=== PATIENT | female | born 1995 | race Caucasian/White ===

== ENCOUNTER 2019-12-13 20:45 | Inpatient (IN) | payer MEDICAID, OTHER ==
[2019-12-13] MEDS ORDERED: SODIUM CHLORIDE 0.9% 1,000 ML IV STA (21:11)
--- NOTE | 2019-12-13 21:15 | ED ---
General Adult HPI <Mehul Hassan Lisa - Last Filed: 12/14/19 01:18> <Slim Meek - Last Filed: 12/14/19 01:23> - General Stated complaint: mental health Time Seen by Provider: 12/13/19 20:49 - History of Present Illness Initial comments: Patient is a 24-year-old female presenting to emergency Department with a chief complaint of overdose. Patient was petitioned by Police Department. Patient reports she took 20 tablets of 30 mg gabapentin. Patient reports the medication was used for a previous extremity injury. Patient reports ingesting the medication about 35 minutes prior to arrival. Patient reports feeling slightly drowsy and shaky but otherwise well. Denies any nausea or vomiting diarrhea. Denies any lightheadedness dizziness blurry vision or headaches at this time. Denies any chest pain or shortness of breath. Denies one-sided weakness paresthesias. Patient states she feels slightly drowsy. (Slim Meek) - Related Data Allergies Allergy/AdvReac Type Severity Reaction Status Date / Time No Known Allergies Allergy Verified 12/13/19 23:42 Review of Systems ROS Other: All systems not noted in ROS Statement are negative. <Mehul Hassan Lisa - Last Filed: 12/14/19 01:18> ROS Other: All systems not noted in ROS Statement are negative. <Slim Meek - Last Filed: 12/14/19 01:23> ROS Statement: Those systems with pertinent positive or pertinent negative responses have been documented in the HPI. General Exam Limitations: no limitations General appearance: alert, anxious Head exam: Present: atraumatic, normocephalic, normal inspection Eye exam: Present: normal appearance, PERRL, EOMI Pupils: Present: normal accommodation ENT exam: Present: normal exam Neck exam: Present: normal inspection, full ROM Respiratory exam: Present: normal lung sounds bilaterally Cardiovascular Exam: Present: regular rate, normal rhythm, normal heart sounds Extremities exam: Present: normal inspection, full ROM Back exam: Present: normal inspection, full ROM Neurological exam: Present: alert, oriented X3, CN II-XII intact, normal gait Psychiatric exam: Present: normal affect, anxious. Absent: depressed, agitated, flat affect, manic Skin exam: Present: warm, dry, intact, normal color <Slim Meek - Last Filed: 12/14/19 01:23> Course <Mehul Hassan - Last Filed: 12/14/19 01:18> Vital Signs 12/13/19 12/13/19 12/13/19 21:17 21:26 21:30 Temperature 98.6 F Pulse Rate 86 92 84 Respiratory 16 Rate Blood Pressure 134/90 134/90 O2 Sat by Pulse 98 99 Oximetry 12/13/19 12/13/19 12/13/19 21:45 22:00 22:15 Temperature Pulse Rate 82 82 100 Respiratory Rate Blood Pressure 134/90 134/90 131/89 O2 Sat by Pulse 99 99 100 Oximetry 12/13/19 12/13/19 12/13/19 22:30 22:45 23:00 Temperature Pulse Rate 107 H 88 80 Respiratory Rate Blood Pressure 132/92 132/89 129/88 O2 Sat by Pulse 99 100 96 Oximetry 12/13/19 23:15 Temperature Pulse Rate 90 Respiratory Rate Blood Pressure 126/81 O2 Sat by Pulse 96 Oximetry - Reevaluation(s) Reevaluation #1: 12/14/19 01:18 I personally evaluated this patient, completed a clinical certification and agree with recommendation to admit this patient for further psychiatric evaluation and treatment. (Mehul Hassan) EKG Findings - EKG Comments: EKG Findings:: Sinus rhythm no ST or T-wave changes. Ventricular rate 85, NH 154, QRS 74, QTC 402. <Slim Meek - Last Filed: 12/14/19 01:23> Medical Decision Making - Lab Data Result diagrams: 12/13/19 21:40 12/13/19 21:40 <Mehul Hassan - Last Filed: 12/14/19 01:18> - Lab Data Result diagrams: 12/13/19 21:40 12/13/19 21:40 <Slim Meek - Last Filed: 12/14/19 01:23> - Medical Decision Making Patient is 24-year-old female with history of suicidal attempt presenting to emergency Department with a chief complaint of overdose. Patient brought to the ED via police department. Patient attempted suicide by ingesting 20 tablets of 300 mg of gabapentin. On exam patient was slightly diaphoretic with bilateral upper and lower extremity tremors. Patient is AO 3. Patient states she feels slightly shaky but otherwise well. I spoke with poison control who advised 50 mg of activated charcoal with sorbitol. Patient was given that. Patient is a sinus rhythm with no QT prolonged inpatient. They advised patient to be observed for 6-8 hours. CBC shows slight elevation a WBC. CMP unremarkable. Acetaminophen and salicylates negative. Not UA unremarkable. On reevaluation patient reports the tremors have resolved and now she feels under. Mother is also present in the room. They will likely patient to be evaluated by psychiatry. She will be admitted for psychiatric evaluation. (Slim Meek) - Lab Data Lab Results 12/13/19 12/13/19 12/13/19 Range/Units 21:00 21:00 21:40 WBC 11.9 H (3.8-10.6) k/uL RBC 4.30 (3.80-5.40) m/uL Hgb 12.5 (11.4-16.0) gm/dL Hct 37.3 (34.0-46.0) % MCV 86.8 (80.0-100.0) fL MCH 29.1 (25.0-35.0) pg MCHC 33.6 (31.0-37.0) g/dL RDW 12.3 (11.5-15.5) % Plt Count 245 (150-450) k/uL Neutrophils % 72 % Lymphocytes % 20 % Monocytes % 6 % Eosinophils % 1 % Basophils % 0 % Neutrophils # 8.5 H (1.3-7.7) k/uL Lymphocytes # 2.4 (1.0-4.8) k/uL Monocytes # 0.7 (0-1.0) k/uL Eosinophils # 0.1 (0-0.7) k/uL Basophils # 0.0 (0-0.2) k/uL Sodium (137-145) mmol/L Potassium (3.5-5.1) mmol/L Chloride (98-107) mmol/L Carbon Dioxide (22-30) mmol/L Anion Gap mmol/L BUN (7-17) mg/dL Creatinine (0.52-1.04) mg/dL Est GFR (CKD-EPI)AfAm (>60 ml/min/1.73 sqM) Est GFR (CKD-EPI)NonAf (>60 ml/min/1.73 sqM) Glucose (74-99) mg/dL Plasma Lactic Acid Mike (0.7-2.0) mmol/L Calcium (8.4-10.2) mg/dL Total Bilirubin (0.2-1.3) mg/dL AST (14-36) U/L ALT (4-34) U/L Alkaline Phosphatase (38-126) U/L Total Protein (6.3-8.2) g/dL Albumin (3.5-5.0) g/dL Urine HCG, Qual Not Detected (Not Detectd) Salicylates mg/dL Urine Opiates Screen Not Detected (NotDetected) Ur Oxycodone Screen Not Detected (NotDetected) Urine Methadone Screen Not Detected (NotDetected) Ur Propoxyphene Screen Not Detected (NotDetected) Acetaminophen ug/mL Ur Barbiturates Screen Not Detected (NotDetected) U Tricyclic Antidepress Not Detected (NotDetected) Ur Phencyclidine Scrn Not Detected (NotDetected) Ur Amphetamines Screen Not Detected (NotDetected) U Methamphetamines Scrn Not Detected (NotDetected) U Benzodiazepines Scrn Not Detected (NotDetected) Urine Cocaine Screen Not Detected (NotDetected) U Marijuana (THC) Screen Not Detected (NotDetected) Serum Alcohol mg/dL 12/13/19 12/13/19 Range/Units 21:40 21:54 WBC (3.8-10.6) k/uL RBC (3.80-5.40) m/uL Hgb (11.4-16.0) gm/dL Hct (34.0-46.0) % MCV (80.0-100.0) fL MCH (25.0-35.0) pg MCHC (31.0-37.0) g/dL RDW (11.5-15.5) % Plt Count (150-450) k/uL Neutrophils % % Lymphocytes % % Monocytes % % Eosinophils % % Basophils % % Neutrophils # (1.3-7.7) k/uL Lymphocytes # (1.0-4.8) k/uL Monocytes # (0-1.0) k/uL Eosinophils # (0-0.7) k/uL Basophils # (0-0.2) k/uL Sodium 136 L (137-145) mmol/L Potassium 5.1 (3.5-5.1) mmol/L Chloride 105 (98-107) mmol/L Carbon Dioxide 25 (22-30) mmol/L Anion Gap 6 mmol/L BUN 12 (7-17) mg/dL Creatinine 0.72 (0.52-1.04) mg/dL Est GFR (CKD-EPI)AfAm >90 (>60 ml/min/1.73 sqM) Est GFR (CKD-EPI)NonAf >90 (>60 ml/min/1.73 sqM) Glucose 92 (74-99) mg/dL Plasma Lactic Acid Mike 0.8 (0.7-2.0) mmol/L Calcium 9.0 (8.4-10.2) mg/dL Total Bilirubin 1.1 (0.2-1.3) mg/dL AST 47 H (14-36) U/L ALT 14 (4-34) U/L Alkaline Phosphatase 62 (38-126) U/L Total Protein 7.7 (6.3-8.2) g/dL Albumin 4.5 (3.5-5.0) g/dL Urine HCG, Qual (Not Detectd) Salicylates <1.0 mg/dL Urine Opiates Screen (NotDetected) Ur Oxycodone Screen (NotDetected) Urine Methadone Screen (NotDetected) Ur Propoxyphene Screen (NotDetected) Acetaminophen <10.0 ug/mL Ur Barbiturates Screen (NotDetected) U Tricyclic Antidepress (NotDetected) Ur Phencyclidine Scrn (NotDetected) Ur Amphetamines Screen (NotDetected) U Methamphetamines Scrn (NotDetected) U Benzodiazepines Scrn (NotDetected) Urine Cocaine Screen (NotDetected) U Marijuana (THC) Screen (NotDetected) Serum Alcohol <10 mg/dL Disposition <Mehul Hassan - Last Filed: 12/14/19 01:18> Is patient prescribed a controlled substance at d/c from ED?: No Time of Disposition: 23:09 <Slim Meek - Last Filed: 12/14/19 01:23> Clinical Impression: Attempted suicide Disposition: ADMITTED IP TO THIS [facility] Condition: Good Additional Instructions: Patient will be admitted Referrals: None,Stated [Primary Care Provider] - 1-2 days
[2019-12-13] MEDS ORDERED: ACTIVATED CHARCOAL-SORBITOL 50 GM/240 ML BOTTLE PO STA (21:50)
[2019-12-13 21:53] LABS: Amphetamine Screen,Urine Not Detected (NotDetected); Barbiturate Screen,Urine Not Detected (NotDetected); Benzodiazepines Screen,Urine Not Detected (NotDetected); Cocaine Screen,Urine Not Detected (NotDetected); Methadone Screen, Urine Not Detected (NotDetected); Opiate Screen,Urine Not Detected (NotDetected); Oxycodone Screen, Urine Not Detected (NotDetected); Phencyclidine Screen,Urine Not Detected (NotDetected); Tricyclic Antidepressant,Urine Not Detected (NotDetected); Urn Cannabinoid Scrn Not Detected (NotDetected)
[2019-12-13 21:59] LABS: Basophils % (A) 0 %; Eosinophils # (A) 0.1 k/uL (0-0.7); Eosinophils % (A) 1 %; HCT 37.3 % (34.0-46.0); HGB 12.5 gm/dL (11.4-16.0); Lymphocytes # (A) 2.4 k/uL (1.0-4.8); Lymphocytes % (A) 20 %; MCH 29.1 pg (25.0-35.0); MCHC 33.6 g/dL (31.0-37.0); MCV 86.8 fL (80.0-100.0); Mean Platelet Volume 8.7; Monocytes # (A) 0.7 k/uL (0-1.0); Monocytes % (A) 6 %; Neutrophils # (A) 8.5 k/uL (1.3-7.7); Neutrophils % (A) 72 %; Platelet Count 245 k/uL (150-450); RDW 12.3 % (11.5-15.5); WBC 11.9 k/uL (3.8-10.6)
[2019-12-13 22:02] LABS: ALT 14 U/L (4-34); AST 47 U/L (14-36); Acetaminophen <10.0 ug/mL; African American GFR (CKD) >90 (>60 ml/min/1.73 sqM); Albumin 4.5 g/dL (3.5-5.0); Alcohol <10 mg/dL; Alkaline Phosphatase 62 U/L (38-126); Anion Gap 6 mmol/L; Blood Urea Nitrogen 12 mg/dL (7-17); Carbon Dioxide 25 mmol/L (22-30); Chloride 105 mmol/L (98-107); Glucose 92 mg/dL (74-99); Non-African American GFR(CKD) >90 (>60 ml/min/1.73 sqM); Potassium 5.1 mmol/L (3.5-5.1); Salicylate <1.0 mg/dL; Sodium 136 mmol/L (137-145); Total Bilirubin 1.1 mg/dL (0.2-1.3); Total Protein 7.7 g/dL (6.3-8.2)
[2019-12-14] MEDS ORDERED: MAGNESIUM HYDROXIDE 2,400 MG/10 ML CUP PO PRN (01:59)
[2019-12-14] MEDS ORDERED: LORazepam 1 MG TAB PO PRN (01:59)
[2019-12-14] MEDS ORDERED: MAG HYDROX/AL HYDROX/SIMETH 30 ML CUP PO PRN (01:59)
[2019-12-14] MEDS ORDERED: ZIPRASIDONE 20 MG VIAL IM PRN (01:59)
[2019-12-14 02:39] VITALS: BP 139/88; PULSE 95; RESP 14
[2019-12-14 03:42] LABS: Appearance,Urine Clear (Clear); Bacteria,Urine Occasional /hpf; Bilirubin,Urine Negative (Negative); Blood,Urine Large (Negative); Color,Urine Light Yellow; Glucose,Urine (UA) Negative (Negative); Ketones,Urine Negative (Negative); Leukocyte Esterase,Urine Negative (Negative); Nitrite,Urine Negative (Negative); PH, Urine 6.5 (5.0-8.0); Protein,Urine Negative (Negative); RBC,Urine 1 /hpf (0-5); Specific Gravity,Urine 1.006 (1.001-1.035); Squamous Epithelial Cell,Urine <1 /hpf (0-4); Urobilinogen,Urine <2.0 mg/dL (<2.0); WBC,Urine 1 /hpf (0-5)
[2019-12-14 07:22] LABS: Bilirubin,Unconjugated 0.4 mg/dL (0.0-1.1); Total Bilirubin 0.2 mg/dL (0.2-1.3); Total Protein 6.9 g/dL (6.3-8.2)
[2019-12-14] MEDS: ACETAMINOPHEN TAB 325 MG TAB PO PRN ×3 (09:59→21:33)
--- NOTE | 2019-12-14 12:21 | P.HP ---
Psychiatric H&P - . H&P Date: 12/14/19 History & Physical: Allergies Allergy/AdvReac Type Severity Reaction Status Date / Time cat dander Allergy Intermediate Itching Verified 12/14/19 02:10 dog dander Allergy Intermediate Itching Verified 12/14/19 02:10 Vital Signs Temp 97.8 F 12/14/19 02:29 Pulse 95 12/14/19 02:29 Resp 14 12/14/19 02:29 BP 139/88 12/14/19 02:29 Pulse Ox 98 12/14/19 02:29 Intake & Output 12/13/19 12/14/19 12/14/19 18:59 06:59 18:59 Weight 59.194 kg Laboratory Last Values WBC 11.9 k/uL (3.8-10.6) H 12/13/19 21:40 RBC 4.30 m/uL (3.80-5.40) 12/13/19 21:40 Hgb 12.5 gm/dL (11.4-16.0) 12/13/19 21:40 Hct 37.3 % (34.0-46.0) 12/13/19 21:40 MCV 86.8 fL (80.0-100.0) 12/13/19 21:40 MCH 29.1 pg (25.0-35.0) 12/13/19 21:40 MCHC 33.6 g/dL (31.0-37.0) 12/13/19 21:40 RDW 12.3 % (11.5-15.5) 12/13/19 21:40 Plt Count 245 k/uL (150-450) 12/13/19 21:40 Neutrophils % 72 % 12/13/19 21:40 Lymphocytes % 20 % 12/13/19 21:40 Monocytes % 6 % 12/13/19 21:40 Eosinophils % 1 % 12/13/19 21:40 Basophils % 0 % 12/13/19 21:40 Neutrophils # 8.5 k/uL (1.3-7.7) H 12/13/19 21:40 Lymphocytes # 2.4 k/uL (1.0-4.8) 12/13/19 21:40 Monocytes # 0.7 k/uL (0-1.0) 12/13/19 21:40 Eosinophils # 0.1 k/uL (0-0.7) 12/13/19 21:40 Basophils # 0.0 k/uL (0-0.2) 12/13/19 21:40 Sodium 136 mmol/L (137-145) L 12/13/19 21:40 Potassium 5.1 mmol/L (3.5-5.1) 12/13/19 21:40 Chloride 105 mmol/L (98-107) 12/13/19 21:40 Carbon Dioxide 25 mmol/L (22-30) 12/13/19 21:40 Anion Gap 6 mmol/L 12/13/19 21:40 BUN 12 mg/dL (7-17) 12/13/19 21:40 Creatinine 0.72 mg/dL (0.52-1.04) 12/13/19 21:40 Est GFR (CKD-EPI)AfAm >90 (>60 ml/min/1.73 sqM) 12/13/19 21:40 Est GFR (CKD-EPI)NonAf >90 (>60 ml/min/1.73 sqM) 12/13/19 21:40 Glucose 92 mg/dL (74-99) 12/13/19 21:40 Plasma Lactic Acid Mike 0.8 mmol/L (0.7-2.0) 12/13/19 21:54 Calcium 9.0 mg/dL (8.4-10.2) 12/13/19 21:40 Total Bilirubin 0.2 mg/dL (0.2-1.3) 12/14/19 06:54 Conjugated Bilirubin 0.0 mg/dL (0.0-0.3) 12/14/19 06:54 Unconjugated Bilirubin 0.4 mg/dL (0.0-1.1) 12/14/19 06:54 Delta Bilirubin 0.0 mg/dL (0.0-0.2) 12/14/19 06:54 AST 23 U/L (14-36) 12/14/19 06:54 ALT 14 U/L (4-34) 12/14/19 06:54 Alkaline Phosphatase 56 U/L (38-126) 12/14/19 06:54 Total Protein 6.9 g/dL (6.3-8.2) 12/14/19 06:54 Albumin 4.0 g/dL (3.5-5.0) 12/14/19 06:54 Triglycerides 136 mg/dL (<150) 12/14/19 06:54 Cholesterol 214 mg/dL (<200) H 12/14/19 06:54 LDL Cholesterol, Calc 125 mg/dL (0-99) H 12/14/19 06:54 HDL Cholesterol 62 mg/dL (40-60) H 12/14/19 06:54 TSH 2.700 mIU/L (0.465-4.680) 12/14/19 06:54 Urine Color Light Yellow 12/13/19 21:00 Urine Appearance Clear (Clear) 12/13/19 21:00 Urine pH 6.5 (5.0-8.0) 12/13/19 21:00 Ur Specific [place] 1.006 (1.001-1.035) 12/13/19 21:00 Urine Protein Negative (Negative) 12/13/19 21:00 Urine Glucose (UA) Negative (Negative) 12/13/19 21:00 Urine Ketones Negative (Negative) 12/13/19 21:00 Urine Blood Large (Negative) H 12/13/19 21:00 Urine Nitrite Negative (Negative) 12/13/19 21:00 Urine Bilirubin Negative (Negative) 12/13/19 21:00 Urine Urobilinogen <2.0 mg/dL (<2.0) 12/13/19 21:00 Ur Leukocyte Esterase Negative (Negative) 12/13/19 21:00 Urine RBC 1 /hpf (0-5) 12/13/19 21:00 Urine WBC 1 /hpf (0-5) 12/13/19 21:00 Ur Squamous Epith Cells <1 /hpf (0-4) 12/13/19 21:00 Urine Bacteria Occasional /hpf (None) H 12/13/19 21:00 Urine HCG, Qual Not Detected (Not Detectd) 12/13/19 21:00 Salicylates <1.0 mg/dL 12/13/19 21:40 Urine Opiates Screen Not Detected (NotDetected) 12/13/19 21:00 Ur Oxycodone Screen Not Detected (NotDetected) 12/13/19 21:00 Urine Methadone Screen Not Detected (NotDetected) 12/13/19 21:00 Ur Propoxyphene Screen Not Detected (NotDetected) 12/13/19 21:00 Acetaminophen <10.0 ug/mL 12/13/19 21:40 Ur Barbiturates Screen Not Detected (NotDetected) 12/13/19 21:00 U Tricyclic Antidepress Not Detected (NotDetected) 12/13/19 21:00 Ur Phencyclidine Scrn Not Detected (NotDetected) 12/13/19 21:00 Ur Amphetamines Screen Not Detected (NotDetected) 12/13/19 21:00 U Methamphetamines Scrn Not Detected (NotDetected) 12/13/19 21:00 U Benzodiazepines Scrn Not Detected (NotDetected) 12/13/19 21:00 Urine Cocaine Screen Not Detected (NotDetected) 12/13/19 21:00 U Marijuana (THC) Screen Not Detected (NotDetected) 12/13/19 21:00 Serum Alcohol <10 mg/dL 12/13/19 21:40 12/14/19 12:11 IDENTIFYING DATA: Patient is a 24-year-old female who currently lives with her mother in a house and is on disability as single has no kids. HPI: Patient presented to the hospital yesterday after an overdose at home with suicide intent. Patient was given activated charcoal with sorbitol in the ER after allegedly ingesting 20 pills of gabapentin at home. Patient also had written a suicide note saying goodbye to her family members and friends. Patient was on petition by [place] who stated that patient did overdose in an effort to end her life. Patient was seen this morning and was agreeable to seek to technical writer in the office. She claims that she has been struggling with depression for over 3 years now and states that it was a "build-up of things". She went on to explain several stressors and changes in her life including moving back to [place] to be with her mother 2 months ago and states that she has been apart from her boyfriend in [place] who she misses. Patient also spoke about the pandemic and being in isolation. She claims that she is making good progress in [place] working on childhood traumas with her previous counselor however feels that she is "regressed since I've been here". She spoke about poor self-esteem and feeling worthless and also arguments with her mother at home. Patient claims that she was feeling like "I feel I don't matter anymore and I'm supporting everybody". She claims that 1 day ago she got into a argument with her cousin and her cousin's at their house and was kicked out of there home and was forced to walk 3 hours back home. She states that she got home and she was soaking wet from the rain and claims that she had a bath spoke to her boyfriend over the phone and then went to her room and overdosed on the pills and then began writing the suicide note. She states that her mother came to check on her and that's when she told her about the suicide attempt. She claims that she has been on Zoloft 75 mg daily and has been compliant with her medications. Patient denies any suicidal or homicidal ideations intent or plan. At this time patient denies any auditory or visual hallucinations. Patient denies any flight of ideas racing thoughts and increased in goal directed behavior. Patient denies using any cigarettes at this time or any other recreational drugs. PAST PSYCHIATRIC HISTORY: Patient states that she has a history of anxiety and depression and claims that she has never been admitted to a psychiatric hospital. She states she is on Zoloft 75 mg daily for mood. She states that norma cherry has been working with a therapist in [place] however has no psychiatrist in the area. She admitted to one previous suicide attempt one year ago when she cut her wrist. PMH: Ankle injuries from a fall one year ago. ALLERGIES: as per EMR CHEMICAL DEPENDENCY HISTORY: as per HPI FAMILY PSYCHIATRIC/SUBSTANCE USE HISTORY: States that her father has OCD, mother has bipolar disorder and sister suffers from depression. SOCIAL HISTORY: Patient was born and raised in [facility] and states that she moved to [place] and has recently moved back to [place]. She claims that she completed high school and did not attend college. 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 She is single has no kids and currently lives with her mother in a house. MENTAL STATUS EXAM: General Appearance: Patient appears to be stated age is alert, directable, and attempts to cooperate. Patient appears to have fair hygiene and grooming. Behavior: Patient is seated without any agitated behavior. Speech: Patient's speech is fluent and nonpressured. Mood/Affect: Patient reports their mood is depressed and anxious, affect is congruent and constricted. Suicidality/Homicidality: Patient denies having any homicidal ideation intent or plan. Denies any suicidal ideations intent or plan Perceptions: Patient denies any visual hallucinations and denies any auditory hallucinations Though content/process: There is no evidence of any delusional thought content and thought process is linear and goal-directed. Memory and concentration: AOX3, grossly intact for the purposes of this session. Can spell "WORLD" backwards Judgment and insight: Fair STRENGTHS/WEAKNESSES: strength is that patient is resilient. Weakness is that patient has poor judgment INTELLECT: average IMPRESSIONS: Major depressive disorder, recurrent, severe. Anxiety disorder unspecified PLAN: -Patient is admitted under voluntary status to MHU for stabilization of ps ychiatric symptoms and safety. Patient signed adult voluntary form and medication consent and is placed in patient's chart. -Medications : Will start patient on Zoloft 75 mg daily for mood/anxiety with plan to titrate up as needed. Will start patient on trazodone 50 mg daily at bedtime for sleep/mood. -Ativan and Geodon PRN for agitation/aggression -Patient was informed of the risks, benefits and side effects of the medication and patient verbally consented to taking the medications. Patient signed med consent form and was placed in chart. -Internal Medicine consult to perform medical evaluation and physical. -NRT -not need this patient does not smoke. -SW on board for discharge planning. Encourage patient to participate in groups to work on coping skills. Will attempt to work with patient's family to address concerns and work towards a safe discharge plan. 12/14/19 12:18
[2019-12-14] MEDS: SERTRALINE 50 MG TAB PO SCH (13:13)
[2019-12-14 16:21] LABS: Hemoglobin A1C 5.1 % (4.0-6.0)
[2019-12-14] MEDS: traZODone HCL 50 MG TAB PO SCH (21:33)
--- NOTE | 2019-12-15 01:34 | P.HPIM ---
History of Present Illness H&P Date: 12/15/19 The patient is a 24-year-old female with a PMH of depression who presented to the ED after an overdose attempt with gabapentin. The patient reported taking 20 tablets of 30 mg gabapentin for suicide attempt. Poison control was contacted and the patient was given activated charcoal and sorbitol and was monitored after which she was admitted to the mental health unit where she was seen and evaluated earlier today. At time of evaluation, the patient noted feeling well and less drowsy. She reported that she had attempted overdose due to some of the difficulties with her life. She reported chronic bilateral ankle pain due to an injury last year. She otherwise was in good spirits and denied any active complaints. She denied chest pain, shortness of fever, chills, nausea, or vomiting. Review of Systems Pertinent positives and negatives as discussed in HPI, a complete review of systems was performed and all other systems are negative. Past Medical History Additional Past Medical History / Comment(s): Seasonal allergies and pet dander, eczema History of Any Multi-Drug Resistant Organisms: None Reported Past Surgical History: Orthopedic Surgery Additional Past Surgical History / Comment(s): Bilat heel fx and surg 12/2018 Past Anesthesia/Blood Transfusion Reactions: No Reported Reaction Additional Psychological History / Comment(s): [facility] Smoking Status: Never smoker Past Alcohol Use History: None Reported Past Drug Use History: None Reported Medications and Allergies Home Medications Medication Instructions Recorded Confirmed Type Cetirizine HCl [Zyrtec] 10 mg PO DAILY 12/14/19 12/14/19 History Norgestimate-Ethinyl Estradiol 1 tab PO DAILY 12/14/19 12/14/19 History [[id number] Tablet] Sertraline [Zoloft] 25 mg PO AC-TID 12/14/19 12/14/19 History Allergies Allergy/AdvReac Type Severity Reaction Status Date / Time cat dander Allergy Intermediate Itching Verified 12/14/19 02:10 dog dander Allergy Intermediate Itching Verified 12/14/19 02:10 Physical Exam Vitals: Vital Signs Temp Pulse Resp BP Pulse Ox 12/14/19 22:15 98.7 F 12/14/19 17:46 98.2 F 12/14/19 13:51 99.4 F 12/14/19 02:29 97.8 F 95 14 139/88 98 General: non toxic, no distress, appears at stated age, normal weight Derm: no unusual rashes/lesions no unusual ecchymoses, warm, dry Head: atraumatic, normocephalic, symmetric Eyes: EOMI, no lid lag, anicteric sclera, pupils equal round reactive to light ENT: Nose and ears atraumatic, no thrush, no pharyngeal erythema Neck: No thyromegaly, no cervical lymphadenopathy, trachea midline, supple Mouth: no lip lesion, mucus membranes moist Cardiovascular: S1S2 reg, no murmur, positive posterior tibial pulse bilateral, no edema, capillary refill less than 2 seconds Lungs: CTA bilateral, no rhonchi, no rales , no accessory muscle use Abdominal: soft, nontender to palpation, no guarding, no appreciable organ omegaly, normal bowel sounds Ext: no gross muscle atrophy, muscle strength 5 out of 5 in all 4 extremities grossly, no contractures, Neuro: CN II-XI grossly intact, light touch intact all 4 extremities, finger to nose within normal limits, Psych: Alert, oriented, appropriate affect Results CBC & Chem 7: 12/13/19 21:40 12/13/19 21:40 Labs: Abnormal Lab Results - Last 24 Hours (Table) 12/13/19 12/14/19 Range/Units 21:00 06:54 Cholesterol 214 H (<200) mg/dL LDL Cholesterol, Calc 125 H (0-99) mg/dL HDL Cholesterol 62 H (40-60) mg/dL Urine Blood Large H (Negative) Urine Bacteria Occasional H (None) /hpf Thrombosis Risk Factor Assmnt - Choose All That Apply Any of the Below Risk Factors Present?: No Other Risk Factors: No Other congenital or acquired thrombophilia - If yes, enter type in comment: No Thrombosis Risk Factor Assessment Level: Very Low Risk Assessment and Plan Plan: Overdose with gabapentin -Status post charcoal and sorbitol -Patient currently doing well Suicide attempt -As per psychiatry Leukocytosis -Likely due to acute stress with no active signs of infection noted Thank you for allowing us to participate in the care of this patient. We will follow peripherally. Do not hesitate to contact us with questions. Someone can be reached from the [facility] hospitalist group at all hours of the day at [phone].
[2019-12-15] MEDS: SERTRALINE 50 MG TAB PO SCH (08:49)
--- NOTE | 2019-12-15 10:00 | P.PN ---
Progress Note - Text Progress Note Date: 12/15/19 Interval History: Patient was seen laying down in her bed this morning and was directable and ag reeable to speak with health technical writer in the office. Patient claims that she is feeling "okay today" and appeared to be sleepy. She states that she had a difficult night last night that she was awoken several times on the unit. She claims that she is trying and going to some groups and attempting to "make the most of it". She also states that she spoke with her boyfriend over the phone in [place] yesterday and also spoke with her mom and states that "we are trying to work things out". She states that she continues to feels guilt for what she has done and claims that "it was a buildup of many different things". She states that she has fair appetite. At this time patient denies any suicidal or homical ideations, intent or plan. Patient denies any auditory, visual hallucinations and denies any paranoia or delusions. Patient denies any side effects from the medications and has been compliant with meds. Mental Status Exam: General Appearance: Patient appears to be stated age is alert, directable, and attempts to cooperate. Patient appears to have fair hygiene and grooming. Behavior: Patient is seated without any agitated behavior. Speech: Patient's speech is fluent and nonpressured. Mood/Affect: Patient reports their mood is mildly improving, affect is congruent and constricted. Suicidality/Homicidality: Patient denies having any homicidal ideation intent or plan. Denies any suicidal ideations intent or plan Perceptions: Patient denies any visual hallucinations and denies any auditory hallucinations Though content/process: There is no evidence of any delusional thought content and thought process is linear and goal-directed. Memory and concentration: AOX3, grossly intact for the purposes of this session. Judgment and insight: Improving mildly Assessment Major depressive disorder, recurrent, severe. Anxiety disorder unspecified Plan: -Patient continues to meet criteria for inpatient psychiatric admission for symptom stabilization and safety. Patient has signed adult voluntary form and medication consent and was placed in patient's chart. -Medications: Increase Zoloft to 100 mg daily for mood/anxiety with plan to titrate up as needed. Continue with trazodone 50 mg nightly for mood/sleep. -When necessary Geodon and Ativan for agitation/aggression. -NRT -not needed as patient does not smoke. -SW on board for discharge planning. Encouraged the patient to participate in milieu. sheep farm worker to attempt to contact patient's family to address concerns and work towards a safe discharge plan.
[2019-12-15] MEDS: ACETAMINOPHEN TAB 325 MG TAB PO PRN ×3 (12:32→21:26)
[2019-12-15] MEDS: traZODone HCL 50 MG TAB PO SCH (21:26)
[2019-12-15 21:28] VITALS: TEMP 99.3
[2019-12-16] MEDS: ACETAMINOPHEN TAB 325 MG TAB PO PRN (08:55)
[2019-12-16] MEDS ORDERED: SERTRALINE 100 MG TAB PO SCH (09:00)
--- NOTE | 2019-12-16 09:39 | P.DS ---
Providers Date of admission: 12/14/19 01:51 Expected date of discharge: 12/16/19 Attending physician: Jamil Rodriguez MD Consults: 12/14/19 01:59 Consult Physician Routine Consulting Provider: Omayra Vega Consult Reason/Comments: For H & P for Medical Follow up Do you want consulting provider notified?: Yes Primary care physician: Stated None - Discharge Diagnosis(es) (1) Major depressive disorder, recurrent episode Current Visit: Yes Status: Acute Priority: High (2) Anxiety disorder Current Visit: Yes Status: Acute Priority: Medium Hospital Course: Admission HPI: Patient is a 24-year-old female who currently lives with her mother in a house and is on disability as single has no kids. Patient presented to the hospital yesterday after an overdose at home with suicide intent. Patient was given activated charcoal with sorbitol in the ER after allegedly ingesting 20 pills of gabapentin at home. Patient also had written a suicide note saying julieth neil to her family members and friends. Patient was on petition by Sheriff Crocker who stated that patient did overdose in an effort to end her life. Patient was seen this morning and was agreeable to seek to commercial insurance underwriter in the office. She claims that she has been struggling with depression for over 3 years now and states that it was a "build-up of things". She went on to explain several stressors and changes in her life including moving back to [place] to be with her mother 2 months ago and states that she has been apart from her boyfriend in [place] who she misses. Patient also spoke about the pandemic and being in isolation. She claims that she is making good progress in [place] working on childhood traumas with her previous counselor however feels that she is "regressed since I've been here". She spoke about poor self-esteem and feeling worthless and also arguments with her mother at home. Patient claims that she was feeling like "I feel I don't matter anymore and I'm supporting everybody". She claims that 1 day ago she got into a argument with her cousin and her cousin's at their house and was kicked out of there home and was forced to walk 3 hours back home. She states that she got home and she was soaking wet from the rain and claims that she had a bath spoke to her boyfriend over the phone and then went to her room and overdosed on the pills and then began writing the suicide note. She states that her mother came to check on her and that's when she told her about the suicide attempt. She claims that she has been on Zoloft 75 mg daily and has been compliant with her medications. Patient denies any suicidal or homicidal ideations intent or plan. At this time patient denies any auditory or visual hallucinations. Patient denies any flight of ideas racing thoughts and increased in goal directed behavior. Patient denies using any cigarettes at this time or any other recreational drugs. Hospital course: Upon admission to the unit patient was initially depressed and anxious. Patient was however directable and agreeable to commence treatment. Patient got along well with other patients on the unit and followed unit protocol. Patient was compliant with the medications and denied any side effects throughout hospital course. Patient was started on Zoloft and titrated up to a dose of 100 mg daily for mood/anxiety, patient was also started on trazodone 50 mg nightly for mood/sleep. Patient spoke of her stressors and engaged in therapy both group and individual. Patient spoke about working on distress tolerance and coping skills. Patient was also seen by medical team for history and physical exam. Throughout the course of the hospitalization patient gradually improved with regards to mood, anxiety, sleep and became future oriented with improved insight and judgment. On the day of discharge patient denied any suicidal or homicidal ideations intent or plan denied any auditory or visual hallucinations. Patient endorsed wanting to live for her future and her family. The patient denied any access to guns or weapons. Patient denied any paranoia and did not endorse any delusions. Patient does not have a significant history of substance abuse however was counseled on abstaining from all substances including alcohol and marijuana. Patient was also counseled on the medications and need for regular compliance and was encouraged to follow-up with their outpatient appointment for mental health and also for primary care. [Prior to discharge commercial insurance underwriter patient and mother held the phone call meeting and discussed patient's care, answer questions when addressed concerns for safety in the household and mother was agreeable to watch patient closely and manage her medications at home and is agreeable and comfortable with discharge today. Mental status exam: General Appearance: Patient is in a wheelchair, appears to be stated age is alert, pleasant, and cooperative. Patient is in no acute distress and has fair hygiene and grooming Behavior: Patient is calmly seated without any agitated behavior. Speech: Patient's speech is fluent and nonpressured. Mood/Affect: Patient reports their mood is "better", affect is congruent and euthymic. Suicidality/Homicidality: Patient denies having any suicidal or homicidal ideation intent or plan. Perceptions: Patient denies any auditory or visual hallucinations. Though content/process: There is no evidence of any delusional thought content and thought process is linear and goal-directed. more future oriented Memory and concentration: AOX3, grossly intact for the purposes of this session. Can spell "WORLD" backwards correctly. Judgment and insight: Improved with guarded prognosis Impression: [place]. depressive disorder, recurrent, severe Anxiety disorder unspecified Plan: -Continue with discharge today as patient has improved and stabilized psychiatrically and is not currently an imminent threat to herself and/or others. -Continue medications: Continue with Zoloft 100 mg daily for mood/anxiety, trazodone 50 mg nightly for mood/sleep. -Patient was counseled on the need for medication compliance and appropriate follow-up at mental health and also primary care for medical issues. Patient verbalized understanding and agreed. -Social work to arrange for and conduct family meeting to ensure safety upon discharge and answer any questions/concerns. Social work also to arrange for patients follow up appointments for psychiatric care along with follow up with primary care provider. Patient will also be given resources for outpatient therapists in the area. -Patient counseled on abstaining from recreational drugs and marijuana and alcohol. Was informed/educated on the adverse effects on their physical and mental health. Patient verbally agreed and understood. -Patient was instructed to return to the hospital or seek immediate medical care if their psychiatric or medical symptoms do worsen or reoccur. Allergies Allergy/AdvReac Type Severity Reaction Status Date / Time cat dander Allergy Intermediate Itching Verified 12/14/19 02:10 dog dander Allergy Intermediate Itching Verified 12/14/19 02:10 Laboratory Results WBC 11.9 k/uL (3.8-10.6) H 12/13/19 21:40 RBC 4.30 m/uL (3.80-5.40) 12/13/19 21:40 Hgb 12.5 gm/dL (11.4-16.0) 12/13/19 21:40 Hct 37.3 % (34.0-46.0) 12/13/19 21:40 MCV 86.8 fL (80.0-100.0) 12/13/19 21:40 MCH 29.1 pg (25.0-35.0) 12/13/19 21:40 MCHC 33.6 g/dL (31.0-37.0) 12/13/19 21:40 RDW 12.3 % (11.5-15.5) 12/13/19 21:40 Plt Count 245 k/uL (150-450) 12/13/19 21:40 Neutrophils % 72 % 12/13/19 21:40 Lymphocytes % 20 % 12/13/19 21:40 Monocytes % 6 % 12/13/19 21:40 Eosinophils % 1 % 12/13/19 21:40 Basophils % 0 % 12/13/19 21:40 Neutrophils # 8.5 k/uL (1.3-7.7) H 12/13/19 21:40 Lymphocytes # 2.4 k/uL (1.0-4.8) 12/13/19 21:40 Monocytes # 0.7 k/uL (0-1.0) 12/13/19 21:40 Eosinophils # 0.1 k/uL (0-0.7) 12/13/19 21:40 Basophils # 0.0 k/uL (0-0.2) 12/13/19 21:40 Sodium 136 mmol/L (137-145) L 12/13/19 21:40 Potassium 5.1 mmol/L (3.5-5.1) 12/13/19 21:40 Chloride 105 mmol/L (98-107) 12/13/19 21:40 Carbon Dioxide 25 mmol/L (22-30) 12/13/19 21:40 Anion Gap 6 mmol/L 12/13/19 21:40 BUN 12 mg/dL (7-17) 12/13/19 21:40 Creatinine 0.72 mg/dL (0.52-1.04) 12/13/19 21:40 Est GFR (CKD-EPI)AfAm >90 (>60 ml/min/1.73 sqM) 12/13/19 21:40 Est GFR (CKD-EPI)NonAf >90 (>60 ml/min/1.73 sqM) 12/13/19 21:40 Glucose 92 mg/dL (74-99) 12/13/19 21:[address] Glu mg/dL 100 12/14/19 06:54 Hemoglobin A1c 5.1 % (4.0-6.0) 12/14/19 06:54 Plasma Lactic Acid Mike 0.8 mmol/L (0.7-2.0) 12/13/19 21:54 Calcium 9.0 mg/dL (8.4-10.2) 12/13/19 21:40 Total Bilirubin 0.2 mg/dL (0.2-1.3) 12/14/19 06:54 Conjugated Bilirubin 0.0 mg/dL (0.0-0.3) 12/14/19 06:54 Unconjugated Bilirubin 0.4 mg/dL (0.0-1.1) 12/14/19 06:54 Delta Bilirubin 0.0 mg/dL (0.0-0.2) 12/14/19 06:54 AST 23 U/L (14-36) 12/14/19 06:54 ALT 14 U/L (4-34) 12/14/19 06:54 Alkaline Phosphatase 56 U/L (38-126) 12/14/19 06:54 Total Protein 6.9 g/dL (6.3-8.2) 12/14/19 06:54 Albumin 4.0 g/dL (3.5-5.0) 12/14/19 06:54 Triglycerides 136 mg/dL (<150) 12/14/19 06:54 Cholesterol 214 mg/dL (<200) H 12/14/19 06:54 LDL Cholesterol, Calc 125 mg/dL (0-99) H 12/14/19 06:54 HDL Cholesterol 62 mg/dL (40-60) H 12/14/19 06:54 TSH 2.700 mIU/L (0.465-4.680) 12/14/19 06:54 Urine Color Light Yellow 12/13/19 21:00 Urine Appearance Clear (Clear) 12/13/19 21:00 Urine pH 6.5 (5.0-8.0) 12/13/19 21:00 Ur Specific [place] 1.006 (1.001-1.035) 12/13/19 21:00 Urine Protein Negative (Negative) 12/13/19 21:00 Urine Glucose (UA) Negative (Negative) 12/13/19 21:00 Urine Ketones Negative (Negative) 12/13/19 21:00 Urine Blood Large (Negative) H 12/13/19 21:00 Urine Nitrite Negative (Negative) 12/13/19 21:00 Urine Bilirubin Negative (Negative) 12/13/19 21:00 Urine Urobilinogen <2.0 mg/dL (<2.0) 12/13/19 21:00 Ur Leukocyte Esterase Negative (Negative) 12/13/19 21:00 Urine RBC 1 /hpf (0-5) 12/13/19 21:00 Urine WBC 1 /hpf (0-5) 12/13/19 21:00 Ur Squamous Epith Cells <1 /hpf (0-4) 12/13/19 21:00 Urine Bacteria Occasional /hpf (None) H 12/13/19 21:00 Urine HCG, Qual Not Detected (Not Detectd) 12/13/19 21:00 Salicylates <1.0 mg/dL 12/13/19 21:40 Urine Opiates Screen Not Detected (NotDetected) 12/13/19 21:00 Ur Oxycodone Screen Not Detected (NotDetected) 12/13/19 21:00 Urine Methadone Screen Not Detected (NotDetected) 12/13/19 21:00 Ur Propoxyphene Screen Not Detected (NotDetected) 12/13/19 21:00 Acetaminophen <10.0 ug/mL 12/13/19 21:40 Ur Barbiturates Screen Not Detected (NotDetected) 12/13/19 21:00 U Tricyclic Antidepress Not Detected (NotDetected) 12/13/19 21:00 Ur Phencyclidine Scrn Not Detected (NotDetected) 12/13/19 21:00 Ur Amphetamines Screen Not Detected (NotDetected) 12/13/19 21:00 U Methamphetamines Scrn Not Detected (NotDetected) 12/13/19 21:00 U Benzodiazepines Scrn Not Detected (NotDetected) 12/13/19 21:00 Urine Cocaine Screen Not Detected (NotDetected) 12/13/19 21:00 U Marijuana (THC) Screen Not Detected (NotDetected) 12/13/19 21:00 Serum Alcohol <10 mg/dL 12/13/19 21:40 Vital Signs Temp 99.3 F 12/15/19 21:28 Pulse 95 12/14/19 02:29 Resp 14 12/14/19 02:29 BP 139/88 12/14/19 02:29 Pulse Ox 98 12/14/19 02:29 Patient Condition at Discharge: Stable Plan - Discharge Summary New Discharge Prescriptions: New traZODone HCL [Desyrel] 50 mg PO HS 30 Days tab Acetaminophen Tab [Tylenol] 650 mg PO Q4HR PRN tab PRN Reason: Pain/Discomfort Sertraline [Zoloft] 100 mg PO DAILY 30 Days tab Continue Cetirizine HCl [Zyrtec] 10 mg PO DAILY Norgestimate-Ethinyl Estradiol [Ptb-Pc-Josaufyq Tablet] 1 tab PO DAILY Discontinued Sertraline [Zoloft] 25 mg PO AC-TID Discharge Medication List Cetirizine HCl [Zyrtec] 10 mg PO DAILY 12/14/19 [History] Norgestimate-Ethinyl Estradiol [Oid-Uc-Hyiukjqa Tablet] 1 tab PO DAILY 12/14/19 [History] Acetaminophen Tab [Tylenol] 650 mg PO Q4HR PRN tab 12/16/19 [Rx] Sertraline [Zoloft] 100 mg PO DAILY 30 Days tab 12/16/19 [Rx] traZODone HCL [Desyrel] 50 mg PO HS 30 Days tab 12/16/19 [Rx] Follow up Appointment(s)/Referral(s): None,Stated [Primary Care Provider] - 1-2 days Activity/Diet/Wound Care/Special Instructions: Activity and diet as tolerated. Avoid the use of street drugs and alcohol. Take all medications as prescribed. When you are in need of refills on your medications please contact your medical provider and/or outpatient psychiatrist to have this done. Please go to scheduled outpatient appointment for aftercare treatment. If symptoms return or become worse, call the crisis line at and/or go to the nearest emergency room for evaluation. Discharge Disposition: HOME SELF-CARE
== END 2019-12-16 12:51 | disposition home or self-care (01) | DRG 885 ==
LOC: EC 20:45 → 3MHU 12-14 01:51
PROVIDERS: ADMIT Psychiatry & Neurology Psychiatry; ATTEND Psychiatry & Neurology Psychiatry
DX: F33.2 Major depressive disorder, recurrent severe without psychotic features (principal); D72.829 Elevated white blood cell count, unspecified; F41.9 Anxiety disorder, unspecified; R25.1 Tremor, unspecified; T42.6X2A Poisoning by other antiepileptic and sedative-hypnotic drugs, intentional self-harm, initial encounter; G89.29 Other chronic pain; M25.571 Pain in right ankle and joints of right foot; M25.572 Pain in left ankle and joints of left foot; F43.9 Reaction to severe stress, unspecified; Z79.899 Other long term (current) drug therapy; Z91.5 Personal history of self-harm; Z91.048 Other nonmedicinal substance allergy status; Z81.8 Family history of other mental and behavioral disorders
CPT/HCPCS: 36415; 80053; 80061; 80076; 80306; 80320; 80329; 81001; 81025; 83036; 83520; 83605; 84443; 85025; 93005; 96360; 96361; 99285

== ENCOUNTER → 2020-10-19 | Outpatient (CLI) | payer OTHER | END | disposition home or self-care (01) | LOC: LABWHC1 15:58 | PROVIDERS: ATTEND Family Medicine | DX: J06.9 Acute upper respiratory infection, unspecified (principal) | CPT/HCPCS: U0003; C9803; U0005 ==

== ENCOUNTER → 2020-12-15 | Outpatient (CLI) | payer OTHER | END | disposition home or self-care (01) | LOC: RADECHMAIN 11:43 | PROVIDERS: ATTEND Family Medicine | DX: I47.1 Supraventricular tachycardia (principal) | CPT/HCPCS: 93225; 93226 ==

== ENCOUNTER → 2020-12-23 | Outpatient (CLI) | payer OTHER ==
--- NOTE | 2020-12-23 15:01 | MR ---
EXAMINATION TYPE: MR brain wo/w con DATE OF EXAM: 12/23/2020 COMPARISON: None HISTORY: Syncope TECHNIQUE: Multiplanar, multisequence images of the brain and brainstem is performed without and with IV contras t, utilizing 6.5 mL intravenous Gadavist . FINDINGS: Diffusion weighted images demonstrate no evidence of a recent infarct or other diffusion ab normality. There is no extra-axial fluid collection or significant white matter signal abnormality, T2 hyperintensities are present within the frontal white matter on inversion recovery T2-weighted seq uences on the right. The ventricular system and cisternal spaces are normal in size and appearance. The brain volume is age appropriate. Midline structures demonstrate normal morphology. The craniocervical junction appears within normal limits. Post contrast images demonstrate no abnormal enhancement. The dural venous sinuses appear pa tent. The visualized sinuses are remarkable for inflammatory change in ethmoid air cells and the glob es are intact. IMPRESSION: Nonspecific white matter demyelination of questionable clinical significance. Mild sinus disease.
== END | disposition home or self-care (01) ==
LOC: RADMRIMAIN 09:33
PROVIDERS: ATTEND Family Medicine
DX: J34.9 Unspecified disorder of nose and nasal sinuses (principal)
CPT/HCPCS: 70553; A9585

== ENCOUNTER 2021-03-06 08:08 | Day surgery (SDC) | payer OTHER ==
[2021-03-01 14:42] VITALS: BMI 20.5
[~2021-03-06 08:08] MED LIST: SODIUM CHLORIDE 0.9% 1,000 ML IV SCH
[2021-03-06 08:29] VITALS: BP 119/68; PULSE 86; RESP 18; TEMP 98
--- NOTE | 2021-03-06 11:05 | P.EPPROC ---
- EP Procedure Note Electrophysiology Procedure Note: Diagnosis Recurrent syncope Twelve-lead EKG Sinus rhythm normal NC narrow QRS normal ST segments Early repolarization abnormality inferolaterally, normal variant Tilt table test per protocol Baseline blood pressure 113/71 mmHg, Baseline heart is 60 beats a minute Patient was tilted upright at an angle of 70 per protocol No symptoms were noted increase in heart rate up to 90 beats a minute in the first 10 minutes without any change in blood pressure Patient is laid supine at the end the procedure Impression Normal twelve-lead EKG No evidence for neurocardiogenic syncope on this study Probable, very mild orthostatic intolerance
== END 2021-03-06 10:36 | disposition home or self-care (01) ==
LOC: CATHEP 08:08
PROVIDERS: ATTEND Internal Medicine Clinical Cardiac Electrophysiology
DX: R55 Syncope and collapse (principal); F41.9 Anxiety disorder, unspecified; F32.9 Major depressive disorder, single episode, unspecified; M41.9 Scoliosis, unspecified; J30.2 Other seasonal allergic rhinitis; Z81.8 Family history of other mental and behavioral disorders; Z82.69 Family history of other diseases of the musculoskeletal system and connective tissue; Z82.61 Family history of arthritis; Z83.3 Family history of diabetes mellitus; Z82.3 Family history of stroke; Z84.1 Family history of disorders of kidney and ureter; Z82.49 Family history of ischemic heart disease and other diseases of the circulatory system; F17.200 Nicotine dependence, unspecified, uncomplicated; Z87.448 Personal history of other diseases of urinary system; Z79.899 Other long term (current) drug therapy; Z79.1 Long term (current) use of non-steroidal anti-inflammatories (NSAID)
CPT/HCPCS: 84703; 93660

== ENCOUNTER → 2021-05-31 | Outpatient (CLI) | payer OTHER | END | disposition home or self-care (01) | LOC: LABWHC1 11:51 | PROVIDERS: ATTEND Family Medicine | DX: Z20.822 Contact with and (suspected) exposure to COVID-19 (principal); J02.9 Acute pharyngitis, unspecified | CPT/HCPCS: 87430; U0003; C9803; U0005 ==

== ENCOUNTER → 2021-06-28 | Outpatient (CLI) | payer OTHER ==
[2021-06-28 23:38] LABS: Basophils # (A) 0.05 X 10*3/uL (0.00-0.10); Basophils % (A) 0.3 %; Eosinophils # (A) 0.07 X 10*3/uL (0.04-0.35); Eosinophils % (A) 0.4 %; HCT 37.7 % (37.2-46.3); HGB 11.8 g/dL (12.0-15.0); Lymphocytes # (A) 1.98 X 10*3/uL (0.90-5.00); Lymphocytes % (A) 12.3 %; MCH 27.3 pg (27.0-32.0); MCHC 31.3 g/dL (32.0-37.0); MCV 87.1 fL (80.0-97.0); Monocytes # (A) 0.72 X 10*3/uL (0.20-1.00); Monocytes % (A) 4.5 %; Neutrophils # (A) 13.15 X 10*3/uL (1.80-7.70); Neutrophils % (A) 82.1 %; Platelet Count 372 X 10*3/uL (140-440); RBC 4.33 X 10*6/uL (4.10-5.20); RDW 13.6 % (11.5-14.5); WBC 16.04 X 10*3/uL (4.50-10.00)
[2021-06-29 01:26] LABS: African American GFR (CKD) 119.6 (60.0-200.0); Albumin 4.5 g/dL (3.8-4.9); Albumin/Globulin Ratio 1.5 (1.60-3.17); Anion Gap 15.9 mmol/L (10.00-18.00); BUN/Creat Ratio 20.5 Ratio (12.00-20.00); Blood Urea Nitrogen 16.4 mg/dL (9.0-27.0); Calcium 9.5 mg/dL (8.7-10.3); Carbon Dioxide 22.1 mmol/L (20.0-27.5); Non-African American GFR(CKD) 103.2 (60.0-200.0); Potassium 4.2 mmol/L (3.5-5.5); Total Bilirubin 0.2 mg/dL (0.30-1.20); Total Protein 7.5 g/dL (6.2-8.2)
== END | disposition home or self-care (01) ==
LOC: LABWHC1 15:41
PROVIDERS: ATTEND Family Medicine
DX: H60.90 Unspecified otitis externa, unspecified ear (principal); J02.9 Acute pharyngitis, unspecified
CPT/HCPCS: 36415; 80053; 85025; 86308

== ENCOUNTER → 2021-07-02 | Outpatient (CLI) | payer OTHER | END | disposition home or self-care (01) | LOC: LABWHC1 12:43 | PROVIDERS: ATTEND Family Medicine | DX: Z20.822 Contact with and (suspected) exposure to COVID-19 (principal); J02.9 Acute pharyngitis, unspecified | CPT/HCPCS: U0003; C9803; U0005 ==

== ENCOUNTER → 2022-04-11 | Day surgery (SDC) | payer OTHER ==
[2022-04-10 08:26] VITALS: BMI 19.3
[~2022-04-11] MED LIST changes: +LACTATED RINGERS 1,000 ML IV SCH; +LIDOCAINE 2% INJ 20 MG/ML (2 ML VIAL) ONE; +PROPOFOL 10 MG/ML 20 ML VIAL IV ONE; -SODIUM CHLORIDE 0.9% 1,000 ML IV SCH
[2022-04-11 08:24] VITALS: TEMP 97.3
--- NOTE | 2022-04-11 09:06 | P.GSHP ---
History of Present Illness H&P Date: 04/11/22 Chief Complaint: Epigastric pain, nausea vomiting This is a 27-year-old female who presents today for EGD. Patient quit epigastric pain, nausea vomiting Past Medical History Past Medical History: Osteoarthritis (OA), Skin Disorder Additional Past Medical History / Comment(s): eczema, states hx of fainting., See Cardiology H & P. FREQUENT N/V AND CHANGE IN BOWEL MOVEMENTS History of Any Multi-Drug Resistant Organisms: None Reported Past Surgical History: Orthopedic Surgery, Tonsillectomy Additional Past Surgical History / Comment(s): Bilat heel fx and surg 12/2018 Past Anesthesia/Blood Transfusion Reactions: No Reported Reaction Smoking Status: Never smoker - Past Family History Mother Family Medical History: Cancer Additional Family Medical History / Comment(s): breast cancer Medications and Allergies Home Medications Medication Instructions Recorded Confirmed Type Cetirizine HCl [Zyrtec] 10 mg PO HS 12/14/19 04/11/22 History norgestimate-ethinyl estradioL 1 tab PO 12/14/19 04/11/22 History [Wml-Ki-Nwppznry Tablet] ARIPiprazole [Abilify] 5 mg PO HS 03/02/21 04/11/22 History Escitalopram [Lexapro] 20 mg PO HS 03/02/21 04/11/22 History Prazosin [Minipress] 1 mg PO HS 03/02/21 04/11/22 History busPIRone HCL [Buspirone HCl] 15 mg PO HS 04/10/22 04/11/22 History hydrOXYzine HCL [Hydroxyzine HCl] 10 mg PO HS 04/10/22 04/11/22 History Allergies Allergy/AdvReac Type Severity Reaction Status Date / Time cat dander Allergy Intermediate Itching Verified 04/11/22 08:24 dog dander Allergy Intermediate Itching Verified 04/11/22 08:24 Surgical - Exam Vital Signs Temp Pulse Resp BP Pulse Ox 97.3 F L 82 16 128/83 98 04/11/22 08:23 04/11/22 08:23 04/11/22 08:23 04/11/22 08:23 04/11/22 08:23 - General well developed, well nourished, no distress - Eyes PERRL - ENT normal pinna - Neck no masses - Respiratory normal expansion - Cardiovascular Rhythm: regular - Abdomen Abdomen: soft, non tender Assessment and Plan Plan: Sharon pain, nausea vomiting. We'll perform EGD.
--- NOTE | 2022-04-11 09:14 | P.OP ---
Date of Procedure: 04/11/22 Preoperative Diagnosis: Epigastric pain, nausea vomiting Postoperative Diagnosis: Antral gastritis Procedure(s) Performed: EGD Anesthesia: MAC Surgeon: Ramone Baron Pathology: other (Antrum) Condition: stable Disposition: PACU Description of Procedure: The patient's placed on the endoscopy table in the lateral position. She received IV sedation. The gastro-/oropharynx passed in the esophagus into the stomach. Scope was then placed through the pylorus. The first and second portion of the duodenum appeared normal. The scope was then brought back the antrum and this appeared minimally inflamed. A biopsies was performed. Scope was then retroflexed and the remainder the stomach appeared normal. GE junction was at 40 cm. The distal esophagus appeared normal. The proximal esophagus appeared normal. Scope withdrawn for patient.
[2022-04-11 09:41] VITALS: RESP 16
[2022-04-11 10:15] VITALS: BP 119/75; PULSE 63
--- NOTE | 2022-04-11 13:24 | NM ---
EXAMINATION TYPE: NM hepatobiliary w CCK DATE OF EXAM: 04/11/2022 COMPARISON: NONE HISTORY: Indigestion, nausea and vomiting, epigastric pain and heartburn-like symptoms TECHNIQUE: After the intravenous administration of 5.0 mCi Tc 99m Mebrofenin hepatobiliary scintigrap hy is performed. Immediate images post injection. FINDINGS: There is satisfactory initial accumulation of tracer by the liver. The gallbladder is visualized wit hin 30 minutes. The small bowel activity is noted within 50 minutes. At one hour CCK was administer ed, patient was injected with 1.2 mcg of Kinevac, and gallbladder ejection fraction is calculated at 60 %, in the normal range. Therefore there is no scintigraphic evidence of cystic or common bile fátima t obstruction to suggest acute cholecystitis or gallbladder dyskinesia. IMPRESSION: Exam is within normal limits.
== END ==
LOC: ORWHC2ENDO 08:03
PROVIDERS: ATTEND Surgery
DX: K29.50 Unspecified chronic gastritis without bleeding (principal); R10.13 Epigastric pain; M19.90 Unspecified osteoarthritis, unspecified site; R11.2 Nausea with vomiting, unspecified; F41.9 Anxiety disorder, unspecified; Z87.2 Personal history of diseases of the skin and subcutaneous tissue; Z91.018 Allergy to other foods; Z79.891 Long term (current) use of opiate analgesic; Z79.899 Other long term (current) drug therapy
CPT/HCPCS: 43239; 81025; 88305; 78227; A9537; J2805; J2704; J2001

== ENCOUNTER → 2022-05-30 | Outpatient (CLI) | payer OTHER ==
--- NOTE | 2022-05-31 07:49 | FL ---
EXAMINATION TYPE: FL UGI w esophagus w sm bowel DATE OF EXAM: 05/30/2022 COMPARISON: None HISTORY: Gastroesophageal reflux nausea vomiting TECHNIQUE: Double air contrast technique is utilized to evaluate the esophagus and upper gastrointest inal tract. Small bowel follow-through was then performed with additional oral contrast administered. FINDINGS: Fluoroscopy time 4 minutes 7 seconds Images: 38 Esophagus dilates to normal caliber and has a normal contour to the gastroesophageal junction. Gastro esophageal junction opens widely without hesitancy. Multiple episodes of a large amount of reflux int o the distal third of the esophagus was evident through this examination. The air was completely lost during this time which will limit additional portions of the upper GI. No intraluminal or extralumin al defect within the esophagus is evident. In the horizontal drinking position secondary contraction was evident with incomplete stripping of the esophageal bolus. Fundus body and antrum of the stomach as visualized appear normal. This portion is essentially single contrast. Barium readily empties into the normally positioned duodenal cap and sweep. Ligament of Treitz is in a normal position. Duodenal fold hypertrophy is present. There may be some c hanges of the superior duodenal bulb suggestive for an ulcer. Small aphthous ulcers of the duodenum m ay be present on real-time fluoroscopic observation. Small bowel follow-through: Following additional oral administration of contrast sequential overhead radiographs were obtained. There is rapid transit of the contrast to the colon in 30 minutes. Fluoros copic spot imaging of the terminal ileum appears normal. Ileal and jejunal fold pattern is normal. IMPRESSION: 1. Large amount of gastroesophageal reflux in the distal third of the esophagus. 2. Mild presbyesophagus with incomplete stripping esophageal bolus in the horizontal drinking positio n. 3. Stomach appears unremarkable. There is some limitation on this portion of the evaluation. 4. Findings suggestive for a duodenal bulb ulcer on the superior border. Some mild fold hypertrophy o f the duodenum is present. 5. Rapid transit through normal appearing small bowel loops to the colon.
== END | disposition home or self-care (01) ==
LOC: RADFLMAIN 08:05
PROVIDERS: ATTEND Surgery
DX: K21.9 Gastro-esophageal reflux disease without esophagitis (principal); K22.89 Other specified disease of esophagus
CPT/HCPCS: 74240; 74248

== ENCOUNTER → 2022-07-02 | Outpatient (CLI) | payer OTHER ==
[2022-07-02 18:45] LABS: Basophils # (A) 0.02 X 10*3/uL (0.00-0.10); Basophils % (A) 0.3 %; Eosinophils # (A) 0.12 X 10*3/uL (0.04-0.35); Eosinophils % (A) 1.6 %; HCT 41.7 % (37.2-46.3); HGB 13.7 g/dL (12.0-15.0); Immature Grans, Automated 0.4 %; Lymphocytes # (A) 2.36 X 10*3/uL (0.90-5.00); Lymphocytes % (A) 30.8 %; MCH 28.5 pg (27.0-32.0); MCHC 32.9 g/dL (32.0-37.0); MCV 86.9 fL (80.0-97.0); Monocytes # (A) 0.52 X 10*3/uL (0.20-1.00); Monocytes % (A) 6.8 %; NRBC Per 100 WBC 0 /100 WBCS (0.0-0.0); Neutrophils # (A) 4.61 X 10*3/uL (1.80-7.70); Neutrophils % (A) 60.1 %; Platelet Count 332 X 10*3/uL (140-440); RDW 12.6 % (11.5-14.5); WBC 7.66 X 10*3/uL (4.50-10.00)
== END | disposition home or self-care (01) ==
LOC: LABPAT 13:56
PROVIDERS: ATTEND Surgery
DX: Z01.818 Encounter for other preprocedural examination (principal); K21.00 Gastro-esophageal reflux disease with esophagitis, without bleeding; R94.31 Abnormal electrocardiogram [ECG] [EKG]
CPT/HCPCS: 85025; 93005

== ENCOUNTER 2022-07-03 12:05 | Observation (INO) | payer OTHER ==
[~2022-07-03 12:05] MED LIST changes: +ACETAMINOPHEN TAB 500 MG TAB PO PRN; +DEXAMETHASONE SOD PHOSPHATE 4 MG/ML 1 ML VIAL IV ONE; +HEPARIN SODIUM,PORCINE/PF 5,000 UNIT/0.5 ML SYRINGE SQ PRN; +HYDROmorphone 0.5 MG/0.5 ML SYRINGE IVP PRN; -LACTATED RINGERS 1,000 ML IV SCH; -LIDOCAINE 2% INJ 20 MG/ML (2 ML VIAL) ONE; +MIDAZOLAM 2 MG/2 ML VIAL IV PRN; +ONDANSETRON 4 MG/2 ML VIAL IVP ONE; -PROPOFOL 10 MG/ML 20 ML VIAL IV ONE; +SCOPOLAMINE 1 MG/72 HR PATCH TRANSDERM ONE
[2022-07-03] MEDS: LACTATED RINGERS 1,000 ML IV SCH (12:44)
--- NOTE | 2022-07-03 14:25 | P.GSHP ---
History of Present Illness H&P Date: 07/03/22 Chief Complaint: GERD This a 27-year-old female referred from Mary Singh MD. mThe patient has had long- standing problems with reflux esophagitis. The patient underwent recent EGD is found have evidence of esophagitis. Patient has been well informed on the pr ocedure of laparoscopic Hamilton fundoplication. The patient is aware the risk of the conversion to the open procedure, risk of injury to the stomach, liver and spleen. The patient is also a risk of recurrent GERD and dysphagia symptoms. The patient understands there is a postoperative diet of full liquids for 2 weeks after surgery. Past Medical History Past Medical History: Osteoarthritis (OA), Skin Disorder Additional Past Medical History / Comment(s): eczema, Hx of fx heels with surgery-arthritis in feet ., states hx of fainting., HIATAL HERNIA. PT STOPPED ALL MEDICATION OVER 30 DAYS AGO History of Any Multi-Drug Resistant Organisms: None Reported Past Surgical History: Orthopedic Surgery, Tonsillectomy Additional Past Surgical History / Comment(s): Bilat heel fx and surg 12/2018, EGD, Past Anesthesia/Blood Transfusion Reactions: No Reported Reaction Smoking Status: Never smoker - Past Family History Mother Family Medical History: Cancer Additional Family Medical History / Comment(s): breast cancer Medications and Allergies Home Medications Medication Instructions Recorded Confirmed Type No Known Home Medications 07/02/22 07/03/22 History Allergies Allergy/AdvReac Type Severity Reaction Status Date / Time cat dander Allergy Intermediate Itching Verified 07/03/22 12:29 dog dander Allergy Intermediate Itching Verified 07/03/22 12:29 Surgical - Exam Vital Signs Temp Pulse Resp BP Pulse Ox 98.3 F 100 16 114/75 96 07/03/22 12:35 07/03/22 12:35 07/03/22 12:35 07/03/22 12:35 07/03/22 12:35 - General well developed, well nourished, no distress - Eyes PERRL - ENT normal pinna - Neck no masses - Respiratory normal expansion - Cardiovascular Rhythm: regular - Abdomen Abdomen: soft, non tender Assessment and Plan Assessment: GERD. We'll perform laparoscopic Hamilton fundal plication.
[2022-07-03] MEDS ORDERED: PROPOFOL 10 MG/ML 20 ML VIAL IV ONE (14:51)
[2022-07-03] MEDS ORDERED: KETOROLAC 15 MG/ML 1 ML VIAL ONE (14:51)
[2022-07-03] MEDS ORDERED: MIDAZOLAM 2 MG/2 ML VIAL ONE (14:51)
[2022-07-03] MEDS ORDERED: ROCURONIUM 10 MG/ML (5 ML VIAL) IV ONE (14:51)
[2022-07-03] MEDS ORDERED: GLYCOPYRROLATE 0.2 MG/ML 2 ML VIAL ONE (14:51)
[2022-07-03] MEDS ORDERED: LIDOCAINE 2% INJ 20 MG/ML (2 ML VIAL) ONE (14:51)
[2022-07-03] MEDS ORDERED: fentaNYL (PF) 50 MCG/ML 2 ML AMP ONE (14:51)
[2022-07-03] MEDS ORDERED: SUCCINYLCHOLINE CHLORIDE 200 MG/10 ML VIAL IV ONE (14:51)
[2022-07-03] MEDS ORDERED: NEOSTIGMINE 1 MG/ML 10 ML VIAL ONE (14:51)
[2022-07-03] MEDS ORDERED: HYDROmorphone (PF) 1 MG/ML ONE (14:51)
[2022-07-03] MEDS ORDERED: BUPIVACAIN-EPI 0.25%-1:200,000 30 ML VIAL SQ ONE (15:13)
[2022-07-03] MEDS ORDERED: ONDANSETRON 4 MG/2 ML VIAL IVP PRN (15:52)
--- NOTE | 2022-07-03 15:52 | P.OP ---
Date of Procedure: 07/03/22 Preoperative Diagnosis: GERD Postoperative Diagnosis: GERD Procedure(s) Performed: Laparoscopic Hamilton fundal plication Anesthesia: DANIE Surgeon: Ramone Baron Estimated Blood Loss (ml): 5 Pathology: none sent Condition: stable Disposition: PACU Description of Procedure: The patient was placed on the operating table in the supine position. The patient received general anesthesia. And was placed in dorsal lithotomy position. The patient was prepped and draped in the usual sterile fashion. The skin incision sites were anesthetized with 1% local Xylocaine. The skin was incised in the left periumbilical area and then using a blade less 5 mm trocar under direct visualization panel cavity was entered. After adequate insufflation the laparoscope was then placed into the peritoneal cavity. Next a 5 mm trochars placed in the right epigastric position. Another 5 millimeter trocar the right lateral position. Another 5 millimeter trocar in the left lateral position a 5 mm trocar is placed in the left epigastric position. And then the initial 5 mm trocar was exchanged for a 10 mm trocar. The left lateral lobe liver was retracted. The hernia was seen. The crural defect was then dissected using the Harmonic scissors device. A 360 crural dissection was p erformed the esophagus stomach was reduced back into the peritoneal Cavity. The crural defect was then closed using 2-0 Ethibond suture. Next the fundus of the stomach was mobilized using the [place] scissors device. and then a 60-Citizen Of [place] bougie dilator was placed oropharynx passed into the esophagus and stomach the fundal plication wrap was then performed by grasping the fundus posteriorly and bringing it around the esophagus and stomach fundoplication was then performed using 2-0 Ethibond suture. Care was taken that the fundal location rested over top of the intra-abdominal esophagus. There was no injury seen to the stomach or esophagus. The dilator was then withdrawn. The abdomen was irrigated there is no bleeding seen. The trochars were then withdrawn and then skin incision sites were closed using 3-0 Monocryl suture Steri-Strips are applied. Patient thought procedure well and sent to recovery room in stable condition.
[2022-07-03] MEDS: HYDROmorphone 1 MG/ML 1 ML SYRINGE IVP PRN ×2 (16:50→20:13)
[2022-07-03] MEDS: D5-0.45% NACL WITH KCL 20MEQ/L 1,000 ML IV SCH (17:37)
[2022-07-04] MEDS: HYDROmorphone 1 MG/ML 1 ML SYRINGE IVP PRN ×3 (00:29→11:14)
[2022-07-04] MEDS: D5-0.45% NACL WITH KCL 20MEQ/L 1,000 ML IV SCH ×2 (00:31→09:50)
--- NOTE | 2022-07-04 00:42 | P.CONS ---
History of Present Illness - Reason for Consult Consult date: 07/03/22 Medical management - Chief Complaint Hamilton fundoplication - History of Present Illness Patient is a 27-year-old female with a known history of osteoarthritis, eczema and history of nausea and vomiting for several years and long-standing reflux esophagitis was admitted to hospital for elective fundoplication surgery. Patient recently had EGD showed evidence of esophagitis. Patient tolerated pr ocedure very well. Currently denied any complaints of nausea or vomiting. No fever no chills. Soreness at the surgical site. No headache or dizziness or lightheadedness. No cough or sputum production.. Blood pressure is stable. Review of Systems Constitutional: Patient denies any fever or chills . No generalized weakness or weight loss. Abdomen: Patient denied nausea vomiting and diarrhea and abdominal pain. Cardiovascular: Patient denies any chest pain or short of breath no palpitations. Respiratory: patient denied any cough is from production. No shortness of breath Neurologic: Patient denied any numbness or tingling headache. Musculoskeletal: Patient denies any complaints of joint swelling or deformity. Skin: Negative Psychiatric: Negative Endocrine: No heat or cold intolerance. No recent weight gain. Genitourinary: No dysuria or hematuria. All other 14 point ROS negative except the above Past Medical History Past Medical History: Osteoarthritis (OA), Skin Disorder Additional Past Medical History / Comment(s): eczema, Hx of fx heels with surgery-arthritis in feet ., states hx of fainting., HIATAL HERNIA. PT STOPPED ALL MEDICATION OVER 30 DAYS AGO History of Any Multi-Drug Resistant Organisms: None Reported Past Surgical History: Orthopedic Surgery, Tonsillectomy Additional Past Surgical History / Comment(s): Bilat heel fx and surg 12/2018, EGD, Past Anesthesia/Blood Transfusion Reactions: No Reported Reaction Past Psychological History: Anxiety, Depression Additional Psychological History / Comment(s): OCPD. PT STOPPED ALL MEDS OVER A MONTH AGO Smoking Status: Never smoker Past Alcohol Use History: Occasional Past Drug Use History: Marijuana Additional Drug Use History / Comment(s): current marijuana use. AWARE TO HOLD 24 HOURS PRIOR TO PROCEDURE - Past Family History Mother Family Medical History: Cancer Additional Family Medical History / Comment(s): breast cancer Medications and Allergies Home Medications Medication Instructions Recorded Confirmed Type No Known Home Medications 07/02/22 07/03/22 History Allergies Allergy/AdvReac Type Severity Reaction Status Date / Time cat dander Allergy Intermediate Itching Verified 07/03/22 12:29 dog dander Allergy Intermediate Itching Verified 07/03/22 12:29 Physical Exam Vitals: Vital Signs Temp Pulse Resp BP Pulse Ox 07/03/22 19:21 98.8 F 75 15 114/78 98 07/03/22 17:00 118/76 95 07/03/22 16:45 121/91 95 07/03/22 16:30 120/85 96 07/03/22 16:25 81 16 133/77 95 07/03/22 16:15 98.2 F 62 16 121/82 95 07/03/22 16:10 77 16 126/70 95 07/03/22 16:00 100 16 139/69 100 07/03/22 15:50 98.6 F 114 H 16 111/80 100 07/03/22 12:35 98.3 F 100 16 114/75 96 Intake and Output 07/03/22 07/03/22 07/04/22 14:59 22:59 06:59 Intake Total 1000 900 Output Total 5 Balance 1000 895 Intake: IV 1000 600 Oral 300 Output: Estimated Blood Loss 5 Other: Weight 58.4 kg 58.4 kg PHYSICAL EXAMINATION: Patient is lying in the bed comfortably, no acute distress, awake alert and oriented.. HEENT: Normocephalic. Neck is supple. Pupils reactive. Nostrils clear. Oral cavity is moist. Neck reveals no JVD, carotid bruits, or thyromegaly. CHEST EXAMINATION: Trachea is central. Symmetrical expansion. Lung rios clear to auscultation and percussion. CARDIAC: Normal S1, S2 with no gallops. No murmurs ABDOMEN: Soft. Bowel sounds sluggish, surgical site bandaged.. No organomegaly. No abdominal bruits. Extremities: reveal no edema. No clubbing or cyanosis Neurologically awake, alert, oriented x3 with well-coordinated movements. No focal deficits noted Skin: No rash or skin lesions. Psychiatric: Coperative. Nonsuicidal Musculoskeletal: No joint swelling or deformity. Normal range of motion. Assessment and Plan Assessment: Status post Hamilton fundoplication postoperative day 0 Long-standing history of nausea vomiting and reflux esophagitis History of osteoarthritis, eczema Current marijuana use. Anxiety/depression DVT prophylaxis Plan: Patient recovered on pain management, bowel regimen and avoid IV narcotic pain medications. Encourage incentive spirometry. Monitor H&H and symptomatic management. Follow up closely. Further recommendations based on the clinical course. Thank you for your consult.
[2022-07-04] MEDS: LACTATED RINGERS 1,000 ML IV SCH (04:47)
[2022-07-04 07:34] VITALS: BP 99/66; PULSE 64; RESP 17; TEMP 98.3
[2022-07-04] MEDS ORDERED: ENOXAPARIN 40 MG/0.4 ML SYRINGE SQ SCH (09:00)
[2022-07-04] MEDS ORDERED: HYDROcodone/APAP 5-325MG 1 EACH TAB PO PRN (09:29)
[2022-07-04 10:36] LABS: Basophils # (A) 0.01 X 10*3/uL (0.00-0.10); Basophils % (A) 0.1 %; Eosinophils # (A) 0 X 10*3/uL (0.04-0.35); Eosinophils % (A) 0 %; HCT 33.9 % (37.2-46.3); HGB 11.5 g/dL (12.0-15.0); Immature Grans, Automated 0.5 %; Lymphocytes % (A) 16.9 %; MCH 29.3 pg (27.0-32.0); MCHC 33.9 g/dL (32.0-37.0); MCV 86.3 fL (80.0-97.0); Mean Platelet Volume 10.6 fL (9.5-12.2); Monocytes # (A) 0.92 X 10*3/uL (0.20-1.00); Monocytes % (A) 7.4 %; NRBC Per 100 WBC 0 /100 WBCS (0.0-0.0); Neutrophils # (A) 9.32 X 10*3/uL (1.80-7.70); Neutrophils % (A) 75.1 %; Platelet Count 261 X 10*3/uL (140-440); RBC 3.93 X 10*6/uL (4.10-5.20); RDW 12.6 % (11.5-14.5); WBC 12.41 X 10*3/uL (4.50-10.00)
[2022-07-04 10:49] LABS: African American GFR (CKD) 139.6 (60.0-200.0); Anion Gap 12.1 mmol/L (10.00-18.00); BUN/Creat Ratio 7.14 Ratio (12.00-20.00); Carbon Dioxide 20.9 mmol/L (20.0-27.5); Non-African American GFR(CKD) 120.4 (60.0-200.0); Potassium 4.5 mmol/L (3.5-5.5)
[2022-07-04 12:19] VITALS: BMI 19.5
--- NOTE | 2022-07-04 14:36 | P.DS ---
Providers Date of admission: 07/04/22 08:18 Expected date of discharge: 07/04/22 Attending physician: Ramone Baron Consults: 07/03/22 15:52 Consult Physician Routine Consulting Provider: Lucien Sewell Consult Reason/Comments: Medical management Do you want consulting provider notified?: Yes Primary care physician: Cholo Crenshaw MD Hospital Course: Discharge diagnosis 1. GERD status post laparoscopic Hamilton fundoplication 2. Leukocytosis likely reactive surgery and Decadron Hospital course This is a 27-year-old female with a known history of GERD. She is status post lap endoscopic Hamilton fundoplication. She tolerated surgery well. She is tolerating diet. Her pain is controlled. She's up and ambulating. She is afebrile. Her incision sites are clean dry and intact. She is stable for discharge. Please refer to chart for any further details Physician Rehabilitation Aide/Scheduler note has been reviewed by physician. Signing provider agrees with the documented findings, assessment, and plan of care. Patient Condition at Discharge: Stable Plan - Discharge Summary Discharge Rx Participant: No New Discharge Prescriptions: New Acetaminophen Tab [Tylenol Tab] 650 mg PO Q4H PRN #30 tablet PRN Reason: Pain oxyCODONE HCL [OxyIR] 5 mg PO Q6H PRN 3 Days #12 tab PRN Reason: Pain Discharge Medication List Acetaminophen Tab [Tylenol Tab] 650 mg PO Q4H PRN #30 tablet 07/04/22 [Rx] oxyCODONE HCL [OxyIR] 5 mg PO Q6H PRN 3 Days #12 tab 07/04/22 [Rx] Follow up Appointment(s)/Referral(s): Ramone Baron MD [STAFF PHYSICIAN] - 1 Week Activity/Diet/Wound Care/Special Instructions: No driving while taking [place] No lifting over 10 pounds Shower daily. No soaking or tub baths for 2 weeks Very light activity until you are reevaluated at your follow up appointment with your surgeon No straws or carbonated beverages Continue a full liquid/soft diet for the next 2 weeks Discharge Disposition: HOME SELF-CARE
== END 2022-07-04 15:38 | disposition home or self-care (01) ==
LOC: OR 12:05 → 4SSUR 15:42 → OR 07-04 08:18
PROVIDERS: ADMIT Surgery; ATTEND Surgery
DX: K21.00 Gastro-esophageal reflux disease with esophagitis, without bleeding (principal); D72.829 Elevated white blood cell count, unspecified; R13.10 Dysphagia, unspecified; M19.90 Unspecified osteoarthritis, unspecified site; L30.9 Dermatitis, unspecified; Z98.890 Other specified postprocedural states; Z80.3 Family history of malignant neoplasm of breast; Z91.09 Other allergy status, other than to drugs and biological substances
CPT/HCPCS: 81025; 80048; 85025; 43280; G0378; J2250; J0330; J1100; J2710; J0690; J2405; J1650; J3010; J1170 ×3; J1885; J2704; J1644; J2001

== ENCOUNTER 2022-07-05 16:05 | Observation (INO) | payer OTHER ==
[2022-07-05 17:24] LABS: Basophils % (A) 0 %; Eosinophils # (A) 0.1 k/uL (0-0.7); Eosinophils % (A) 1 %; HCT 41.8 % (34.0-46.0); HGB 14.3 gm/dL (11.4-16.0); Lymphocytes # (A) 1.9 k/uL (1.0-4.8); Lymphocytes % (A) 18 %; MCH 29.3 pg (25.0-35.0); MCHC 34.2 g/dL (31.0-37.0); MCV 85.6 fL (80.0-100.0); Mean Platelet Volume 7.3; Monocytes # (A) 0.6 k/uL (0-1.0); Monocytes % (A) 5 %; Neutrophils # (A) 8.1 k/uL (1.3-7.7); Neutrophils % (A) 75 %; Platelet Count 279 k/uL (150-450); RBC 4.89 m/uL (3.80-5.40); RDW 12.1 % (11.5-15.5); WBC 10.9 k/uL (3.8-10.6)
[2022-07-05 17:28] LABS: Appearance,Urine Clear (Clear); Bilirubin,Urine Negative (Negative); Blood,Urine Negative (Negative); Color,Urine Yellow; Glucose,Urine (UA) Negative (Negative); Ketones,Urine 3+ (Negative); Leukocyte Esterase,Urine Negative (Negative); Nitrite,Urine Negative (Negative); Protein,Urine Negative (Negative); Urobilinogen,Urine <2.0 mg/dL (<2.0)
[2022-07-05 17:34] LABS: ALT 19 U/L (4-34); AST 25 U/L (14-36); African American GFR (CKD) >90 (>60 ml/min/1.73 sqM); Albumin 4.8 g/dL (3.5-5.0); Alkaline Phosphatase 91 U/L (38-126); Amylase 65 U/L (30-110); Anion Gap 12 mmol/L; Blood Urea Nitrogen 5 mg/dL (7-17); Calcium 9.7 mg/dL (8.4-10.2); Carbon Dioxide 25 mmol/L (22-30); Chloride 100 mmol/L (98-107); Glucose 84 mg/dL (74-99); Lipase 136 U/L (23-300); Non-African American GFR(CKD) >90 (>60 ml/min/1.73 sqM); Sodium 137 mmol/L (137-145); Total Bilirubin 0.5 mg/dL (0.2-1.3); Total Protein 7.6 g/dL (6.3-8.2)
--- NOTE | 2022-07-05 18:28 | XR ---
EXAMINATION TYPE: XR KUB DATE OF EXAM: 07/05/2022 5:18 PM INDICATION: Patient age:Female; 27 years old; Reason for study: abdominal pain; COMPARISON: None. TECHNIQUE: One radiographic view of the abdomen was obtained. FINDINGS: Gaseous dilation of the bowel without evidence for obstruction. The bowel gas pattern is no nspecific without dilated loops of small or large bowel. There is no evidence for organomegaly or pne umoperitoneum. The osseous structures are intact. No abnormal calcifications are present. Fecal mat erial and gas are demonstrated throughout the colon and rectum. Surgical clips in the upper abdomen. S-shaped scoliosis changes. IMPRESSION: Gaseous nonspecific bowel gas pattern without radiographic evidence for acute process.
[2022-07-05] MEDS ORDERED: ONDANSETRON 4 MG/2 ML VIAL IVP STA ×2 (18:58→20:54)
[2022-07-05] MEDS ORDERED: SODIUM CHLORIDE 0.9% 1,000 ML IV STA ×2 (18:58→20:54)
[2022-07-05] MEDS ORDERED: MORPHINE SULFATE 4 MG/ML SYRINGE IVP STA (18:58)
--- NOTE | 2022-07-05 18:59 | ED ---
General Adult HPI - General Chief complaint: Abdominal Pain Stated complaint: Abd pain/post surgery Time Seen by Provider: 07/05/22 18:46 Source: patient, RN notes reviewed, old records reviewed Mode of arrival: ambulatory Limitations: no limitations - History of Present Illness Initial comments: Patient is a 27-year-old female who just received a laparoscopic Niesen fundoplication on 07/03/2022. Dr. Baron completed surgery. She is discharged home yesterday and was solid oral intake at that time but starting last night and continuing today she is having multiple episodes of nausea and vomiting. She is having painful swallowing as well as pain over the surgical sites. States she feels like something is stuck in her throat. States this is different than when she was discharged she was tolerating oral intake without difficulty yesterday. She presents emergency department for further evaluation over concern for her symptoms. Endorses chest pain when swallowing. Denies shortness of breath. Denies diarrhea. Denies any fevers or chills. Denies any urinary complaints. Has no other acute complaints at this time. - Related Data Previous Rx's Medication Instructions Recorded Acetaminophen Tab [Tylenol Tab] 650 mg PO Q4H PRN #30 tablet 07/04/22 oxyCODONE HCL [OxyIR] 5 mg PO Q6H PRN 3 Days #12 tab 07/04/22 Allergies Allergy/AdvReac Type Severity Reaction Status Date / Time cat dander Allergy Intermediate Itching Verified 07/05/22 19:11 dog dander Allergy Intermediate Itching Verified 07/05/22 19:11 Review of Systems ROS Statement: Those systems with pertinent positive or pertinent negative responses have been documented in the HPI. Review of Systems: CONST: Denies fever EYES: Denies blurry vision ENT: Denies nasal congestion C/V: Denies Chest pain RESP: Denies shortness of breath GI: Endorses abdominal pain. SKIN: Denies rash. MSK: Denies joint pain. NEURO: Denies headache ROS Other: All systems not noted in ROS Statement are negative. Past Medical History Past Medical History: Osteoarthritis (OA), Skin Disorder Additional Past Medical History / Comment(s): eczema, Hx of fx heels with surgery-arthritis in feet ., states hx of fainting., HIATAL HERNIA. PT STOPPED ALL MEDICATION OVER 30 DAYS AGO History of Any Multi-Drug Resistant Organisms: None Reported Past Surgical History: Orthopedic Surgery, Tonsillectomy Additional Past Surgical History / Comment(s): Bilat heel fx and surg 12/2018, EGD, HITAL HERNIA REPAIR Past Anesthesia/Blood Transfusion Reactions: No Reported Reaction Past Psychological History: Anxiety, Depression Smoking Status: Never smoker Past Alcohol Use History: Occasional Past Drug Use History: Marijuana - Past Family History Mother Family Medical History: Cancer Additional Family Medical History / Comment(s): breast cancer General Exam - General Exam Comments Initial Comments: General: Appears in no acute distress. HEAD: Normal with no signs of head trauma. EYES: PERRLA, EOMI, conjunctiva normal, no discharge. ENT: Hearing grossly intact, normal oropharynx. RESPIRATORY: Clear breath sounds bilaterally. No wheezes, rales, or rhonchi. C/V: Regular rate and rhythm. S1 and S2 auscultated, no edema, peripheral pulses 2+ and intact throughout ABD: Abdomen is soft, nondistended. Tender to palpation around the sites of the laparoscopic surgeries. No guarding. No rebound tenderness. Mild epigastric tenderness to palpation. EXT: Normal range of motion, no obvious deformity SKIN: No rashes or lesions observed on exposed skin. NEURO: Alert and oriented 4. Limitations: no limitations Course Vital Signs 07/05/22 07/05/22 16:53 19:30 Temperature 97.7 F Pulse Rate 99 92 Respiratory 20 18 Rate Blood Pressure 111/72 112/65 O2 Sat by Pulse 99 100 Oximetry Medical Decision Making - Medical Decision Making Based on the patient's presentation and physical exam, I'm concerned for possible postop complication for the patient's current symptoms. She appears dehydrated as well. Laboratory studies were obtained while the patient was in triage, were remarkable for mild leukocytosis of 10.9. Patient has 3+ ketones in her urine. She is not . Patient will be given IV fluids, IV symptomatic treatment. We will obtain CT of the abdomen and pelvis as well. She was in agreement this plan. Vital signs within acceptable limits. CT abdomen and pelvis is interpreted by myself reveals postsurgical changes but no acute process or finding to explain her current symptoms. KUB x-ray as interpreted by myself revealed nonspecific gas pattern but no acute findings. On reevaluation, we did try by mouth challenge the patient she failed. Based on the workup she does appear dehydrated. I do believe she requires admission to the hospital at this time due to intractable nausea and vomiting postop. She was in agreement this plan. I spoke with the patient's surgeon, Dr. Baron who was in agreement with admission. I will place the patient on every 6 hr 4 mg Decadron, continue pain management, IV fluids, as well as IV antiemetics. He'll evaluate the patient the morning. He states patient can be on a clear liq uid diet. Patient will be admitted under his service. I discussed this with the patient and she was in agreement this plan. Patient was admitted in stable condition. - Lab Data Result diagrams: 07/05/22 17:01 07/05/22 17:01 Lab Results 07/05/22 07/05/22 07/05/22 Range/Units 17:01 17:01 17:17 WBC 10.9 H (3.8-10.6) k/uL RBC 4.89 (3.80-5.40) m/uL Hgb 14.3 (11.4-16.0) gm/dL Hct 41.8 (34.0-46.0) % MCV 85.6 (80.0-100.0) fL MCH 29.3 (25.0-35.0) pg MCHC 34.2 (31.0-37.0) g/dL RDW 12.1 (11.5-15.5) % Plt Count 279 (150-450) k/uL MPV 7.3 Neutrophils % 75 % Lymphocytes % 18 % Monocytes % 5 % Eosinophils % 1 % Basophils % 0 % Neutrophils # 8.1 H (1.3-7.7) k/uL Lymphocytes # 1.9 (1.0-4.8) k/uL Monocytes # 0.6 (0-1.0) k/uL Eosinophils # 0.1 (0-0.7) k/uL Basophils # 0.0 (0-0.2) k/uL Sodium 137 (137-145) mmol/L Potassium 5.0 (3.5-5.1) mmol/L Chloride 100 (98-107) mmol/L Carbon Dioxide 25 (22-30) mmol/L Anion Gap 12 mmol/L BUN 5 L (7-17) mg/dL Creatinine 0.74 (0.52-1.04) mg/dL Est GFR (CKD-EPI)AfAm >90 (>60 ml/min/1.73 sqM) Est GFR (CKD-EPI)NonAf >90 (>60 ml/min/1.73 sqM) Glucose 84 (74-99) mg/dL Plasma Lactic Acid Mike (0.7-2.0) mmol/L Calcium 9.7 (8.4-10.2) mg/dL Total Bilirubin 0.5 (0.2-1.3) mg/dL AST 25 (14-36) U/L ALT 19 (4-34) U/L Alkaline Phosphatase 91 (38-126) U/L Total Protein 7.6 (6.3-8.2) g/dL Albumin 4.8 (3.5-5.0) g/dL Amylase 65 (30-110) U/L Lipase 136 (23-300) U/L Urine Color Yellow Urine Appearance Clear (Clear) Urine pH 7.0 (5.0-8.0) Ur Specific [place] 1.020 (1.001-1.035) Urine Protein Negative (Negative) Urine Glucose (UA) Negative (Negative) Urine Ketones 3+ H (Negative) Urine Blood Negative (Negative) Urine Nitrite Negative (Negative) Urine Bilirubin Negative (Negative) Urine Urobilinogen <2.0 (<2.0) mg/dL Ur Leukocyte Esterase Negative (Negative) Urine HCG, Qual (Not Detectd) 07/05/22 07/05/22 Range/Units 17:17 19:34 WBC (3.8-10.6) k/uL RBC (3.80-5.40) m/uL Hgb (11.4-16.0) gm/dL Hct (34.0-46.0) % MCV (80.0-100.0) fL MCH (25.0-35.0) pg MCHC (31.0-37.0) g/dL RDW (11.5-15.5) % Plt Count (150-450) k/uL MPV Neutrophils % % Lymphocytes % % Monocytes % % Eosinophils % % Basophils % % Neutrophils # (1.3-7.7) k/uL Lymphocytes # (1.0-4.8) k/uL Monocytes # (0-1.0) k/uL Eosinophils # (0-0.7) k/uL Basophils # (0-0.2) k/uL Sodium (137-145) mmol/L Potassium (3.5-5.1) mmol/L Chloride (98-107) mmol/L Carbon Dioxide (22-30) mmol/L Anion Gap mmol/L BUN (7-17) mg/dL Creatinine (0.52-1.04) mg/dL Est GFR (CKD-EPI)AfAm (>60 ml/min/1.73 sqM) Est GFR (CKD-EPI)NonAf (>60 ml/min/1.73 sqM) Glucose (74-99) mg/dL Plasma Lactic Acid Mike 1.3 (0.7-2.0) mmol/L Calcium (8.4-10.2) mg/dL Total Bilirubin (0.2-1.3) mg/dL AST (14-36) U/L ALT (4-34) U/L Alkaline Phosphatase (38-126) U/L Total Protein (6.3-8.2) g/dL Albumin (3.5-5.0) g/dL Amylase (30-110) U/L Lipase (23-300) U/L Urine Color Urine Appearance (Clear) Urine pH (5.0-8.0) Ur Specific [place] (1.001-1.035) Urine Protein (Negative) Urine Glucose (UA) (Negative) Urine Ketones (Negative) Urine Blood (Negative) Urine Nitrite (Negative) Urine Bilirubin (Negative) Urine Urobilinogen (<2.0) mg/dL Ur Leukocyte Esterase (Negative) Urine HCG, Qual Not Detected (Not Detectd) Disposition Clinical Impression: Intractable nausea and vomiting, Post-operative complication Disposition: ADMITTED IP TO THIS [facility] Condition: Stable Referrals: Cholo Crenshaw MD [Primary Care Provider] - 1-2 days Time of Disposition: 21:00
--- NOTE | 2022-07-05 20:28 | CT ---
EXAMINATION TYPE: CT abdomen pelvis w con CT DLP: 519.6 mGycm, Automated exposure control for dose reduction was used. DATE OF EXAM: 07/05/2022 7:58 PM COMPARISON: None CLINICAL INDICATION:Female, 27 years old with history of Abd pain, post op; post-op abdominal pain an d vomiting TECHNIQUE: Axial CT of the abdomen and pelvis. Sagittal and coronal reformats were created on a [employer] workstation. Contrast used:100 mL of Isovue 300 with IV Contrast, Oral contrast used: without Oral Contrast FINDINGS: LOWER CHEST: Unremarkable ABDOMEN LIVER: Unremarkable GALLBLADDER AND BILE DUCTS: Unremarkable. PANCREAS: Unremarkable. SPLEEN: Unremarkable. ADRENAL GLANDS: Unremarkable. KIDNEYS AND URETERS: No evidence of hydronephrosis or renal calculus. The ureters are unremarkable. PELVIS BLADDER: Unremarkable REPRODUCTIVE: Unremarkable. ABDOMEN & PELVIS STOMACH AND BOWEL: No evidence of bowel obstruction. PERITONEUM:Scattered foci of gas consistent with pneumoperitoneum throughout the upper abdomen. There is fluid layering in the pelvis counseled units of 27. VASCULATURE: No evidence of aortic aneurysm. MUSCULOSKELETAL: No acute osseous abnormalities LYMPH NODES: No gross evidence for lymphadenopathy. SOFT TISSUE/ABDOMINAL WALL: Intra-abdominal wall suspected surgical access sites in 3 locations. IMPRESSION: No obvious post Hamilton complication there is post op pneumoperitoneum, intra-abdominal access sites w ith small fluid layering in the pelvis. Fluid does have slightly complex attenuation. Which could be admixture of blood and serous fluid.
[2022-07-05] MEDS ORDERED: SODIUM CHLORIDE 0.9% 500 ML 500 ML IV STA (20:54)
[2022-07-05] MEDS ORDERED: NALOXONE 0.4 MG/ML 1 ML VIAL IV PRN (20:55)
[2022-07-05] MEDS: DEXAMETHASONE SOD PHOSPHATE 4 MG/ML 1 ML VIAL IVP SCH (21:12)
[2022-07-05] MEDS: HEPARIN SODIUM,PORCINE/PF 5,000 UNIT/0.5 ML SYRINGE SQ SCH (22:59)
[2022-07-06] MEDS: DEXAMETHASONE SOD PHOSPHATE 4 MG/ML 1 ML VIAL IVP SCH ×4 (01:54→17:47)
[2022-07-06] MEDS: MORPHINE SULFATE 4 MG/ML SYRINGE IVP PRN ×4 (01:54→22:07)
[2022-07-06 07:01] LABS: Basophils % (A) 0 %; Eosinophils % (A) 0 %; HCT 38.1 % (34.0-46.0); HGB 12.9 gm/dL (11.4-16.0); Lymphocytes # (A) 0.6 k/uL (1.0-4.8); Lymphocytes % (A) 8 %; MCHC 33.9 g/dL (31.0-37.0); MCV 85.6 fL (80.0-100.0); Mean Platelet Volume 7.7; Monocytes # (A) 0.1 k/uL (0-1.0); Monocytes % (A) 2 %; Neutrophils # (A) 6.3 k/uL (1.3-7.7); Neutrophils % (A) 89 %; Platelet Count 260 k/uL (150-450); RBC 4.45 m/uL (3.80-5.40); RDW 11.9 % (11.5-15.5); WBC 7.1 k/uL (3.8-10.6)
[2022-07-06 07:18] LABS: African American GFR (CKD) >90 (>60 ml/min/1.73 sqM); Anion Gap 13 mmol/L; Blood Urea Nitrogen 10 mg/dL (7-17); Calcium 9.3 mg/dL (8.4-10.2); Carbon Dioxide 21 mmol/L (22-30); Chloride 102 mmol/L (98-107); Glucose 104 mg/dL (74-99); Non-African American GFR(CKD) >90 (>60 ml/min/1.73 sqM); Potassium 4.8 mmol/L (3.5-5.1); Sodium 136 mmol/L (137-145)
[2022-07-06] MEDS: HEPARIN SODIUM,PORCINE/PF 5,000 UNIT/0.5 ML SYRINGE SQ SCH ×2 (08:12→17:46)
--- NOTE | 2022-07-06 11:26 | P.GSHP ---
History of Present Illness H&P Date: 07/06/22 Chief Complaint: Abdominal pain, nausea This a 27-year-old female who is recently status post Hamilton fundal plication. Patient developed abdominal pain and nausea. She was admitted to the emergency room. Patient's workup. Patient admitted to hospital for dehydration due to nausea and abdominal pain. Patient states that her pain is improved this morning. She did have some nausea however. Past Medical History Past Medical History: Osteoarthritis (OA), Skin Disorder Additional Past Medical History / Comment(s): eczema, Hx of fx heels with surgery-arthritis in feet ., states hx of fainting., HIATAL HERNIA. PT STOPPED ALL MEDICATION OVER 30 DAYS AGO History of Any Multi-Drug Resistant Organisms: None Reported Past Surgical History: Orthopedic Surgery, Tonsillectomy Additional Past Surgical History / Comment(s): Bilat heel fx and surg 12/2018, EGD, HITAL HERNIA REPAIR. farhan fundoplication 07/03/22 Past Anesthesia/Blood Transfusion Reactions: No Reported Reaction Past Psychological History: Anxiety, Bipolar, Depression Additional Psychological History / Comment(s): OCPD. PT STOPPED ALL MEDS OVER A MONTH AGO Smoking Status: Never smoker Past Alcohol Use History: Occasional Past Drug Use History: Marijuana Additional Drug Use History / Comment(s): current marijuana use daily. last use 07/01/22 - Past Family History Mother Family Medical History: Cancer Additional Family Medical History / Comment(s): breast cancer Medications and Allergies Home Medications Medication Instructions Recorded Confirmed Type Acetaminophen Tab [Tylenol Tab] 650 mg PO Q4H PRN #30 tablet 07/04/22 07/05/22 Rx oxyCODONE HCL [OxyIR] 5 mg PO Q6H PRN 3 Days #12 tab 07/04/22 07/05/22 Rx Allergies Allergy/AdvReac Type Severity Reaction Status Date / Time cat dander Allergy Intermediate Itching Verified 07/05/22 19:11 dog dander Allergy Intermediate Itching Verified 07/05/22 19:11 Surgical - Exam Vital Signs Temp Pulse Resp BP Pulse Ox 97.7 F 99 20 111/72 99 07/05/22 16:53 07/05/22 16:53 07/05/22 16:53 07/05/22 16:53 07/05/22 16:53 - General well developed, well nourished, no distress - Eyes PERRL - ENT normal pinna - Neck no masses - Respiratory normal expansion - Cardiovascular Rhythm: regular - Abdomen Minimal incisional tenderness Abdomen: soft Results - Labs 07/06/22 06:48 07/06/22 06:48 Abnormal Lab Results - Last 24 Hours (Table) 07/05/22 07/05/22 07/05/22 Range/Units 17:01 17:01 17:17 WBC 10.9 H (3.8-10.6) k/uL Neutrophils # 8.1 H (1.3-7.7) k/uL Lymphocytes # (1.0-4.8) k/uL Sodium (137-145) mmol/L Carbon Dioxide (22-30) mmol/L BUN 5 L (7-17) mg/dL Glucose (74-99) mg/dL Urine Ketones 3+ H (Negative) 07/06/22 07/06/22 Range/Units 06:48 06:48 WBC (3.8-10.6) k/uL Neutrophils # (1.3-7.7) k/uL Lymphocytes # 0.6 L (1.0-4.8) k/uL Sodium 136 L (137-145) mmol/L Carbon Dioxide 21 L (22-30) mmol/L BUN (7-17) mg/dL Glucose 104 H (74-99) mg/dL Urine Ketones (Negative) Diabetes panel 07/05/22 07/06/22 Range/Units 17:01 06:48 Sodium 137 136 L (137-145) mmol/L Potassium 5.0 4.8 (3.5-5.1) mmol/L Chloride 100 102 (98-107) mmol/L Carbon Dioxide 25 21 L (22-30) mmol/L BUN 5 L 10 (7-17) mg/dL Creatinine 0.74 0.56 (0.52-1.04) mg/dL Glucose 84 104 H (74-99) mg/dL Calcium 9.7 9.3 (8.4-10.2) mg/dL AST 25 (14-36) U/L ALT 19 (4-34) U/L Alkaline Phosphatase 91 (38-126) U/L Total Protein 7.6 (6.3-8.2) g/dL Albumin 4.8 (3.5-5.0) g/dL Calcium panel 07/05/22 07/06/22 Range/Units 17:01 06:48 Calcium 9.7 9.3 (8.4-10.2) mg/dL Albumin 4.8 (3.5-5.0) g/dL Pituitary panel 07/05/22 07/06/22 Range/Units 17:01 06:48 Sodium 137 136 L (137-145) mmol/L Potassium 5.0 4.8 (3.5-5.1) mmol/L Chloride 100 102 (98-107) mmol/L Carbon Dioxide 25 21 L (22-30) mmol/L BUN 5 L 10 (7-17) mg/dL Creatinine 0.74 0.56 (0.52-1.04) mg/dL Glucose 84 104 H (74-99) mg/dL Calcium 9.7 9.3 (8.4-10.2) mg/dL Adrenal panel 07/05/22 07/06/22 Range/Units 17:01 06:48 Sodium 137 136 L (137-145) mmol/L Potassium 5.0 4.8 (3.5-5.1) mmol/L Chloride 100 102 (98-107) mmol/L Carbon Dioxide 25 21 L (22-30) mmol/L BUN 5 L 10 (7-17) mg/dL Creatinine 0.74 0.56 (0.52-1.04) mg/dL Glucose 84 104 H (74-99) mg/dL Calcium 9.7 9.3 (8.4-10.2) mg/dL Total Bilirubin 0.5 (0.2-1.3) mg/dL AST 25 (14-36) U/L ALT 19 (4-34) U/L Alkaline Phosphatase 91 (38-126) U/L Total Protein 7.6 (6.3-8.2) g/dL Albumin 4.8 (3.5-5.0) g/dL Assessment and Plan Assessment: Abdominal pain, nausea. Patient has dehydration. Patient will receive fluid". she is also received Decadron for potential postoperative swelling at the fundal plication site.
[2022-07-06] MEDS ORDERED: ONDANSETRON 4 MG/2 ML VIAL IVP PRN (17:56)
[2022-07-06] MEDS: HYDROcodone/APAP 5-325MG 1 EACH TAB PO PRN (18:08)
[2022-07-07] MEDS: HEPARIN SODIUM,PORCINE/PF 5,000 UNIT/0.5 ML SYRINGE SQ SCH ×4 (01:58→23:00)
[2022-07-07] MEDS: DEXAMETHASONE SOD PHOSPHATE 4 MG/ML 1 ML VIAL IVP SCH ×5 (03:47→23:00)
[2022-07-07] MEDS: MORPHINE SULFATE 4 MG/ML SYRINGE IVP PRN ×2 (07:49→23:06)
--- NOTE | 2022-07-07 11:29 | P.PN ---
Progress Note - Text Progress Note Date: 07/07/22 The patient states she feels better today. She states her pain and nausea have resolved. On exam vital signs are stable. Abdomen is soft. Incision sites are clean dry tach. Postoperative nausea. Patient will start some clear liquids today.
--- NOTE | 2022-07-07 14:17 | P.CONS ---
History of Present Illness - Reason for Consult Consult date: 07/07/22 Medical management - Chief Complaint Nausea and vomiting - History of Present Illness Patient is a 26-year-old female with known history of eczema, arthritis, anxiety/depression bipolar disorder and status post Hamilton fundoplication on 07/03/2022 and daily marijuana use presented to ER with complaints of nausea and vomiting unable to take oral diet since last night. Patient is having continuous nonbilious vomiting. Feels like something stuck in her throat. She was tolerating oral intake at the time of discharge. Otherwise denies any complaints of chest pain or shortness of breath. No fever no chills. No cough or sputum production. No leg swelling. No dizziness or lightheadedness. Patient was started on dexamethasone 4 mg IV push every 6 hourly. Did improve symptomatically overnight. Laboratory pressure WBC 7.1 hemoglobin 12.9 platelets 260 Sodium 136 potassium 4.8 chloride 102 bicarb is 21 BUN 10 and creatinine 0.56 Review of Systems Constitutional: Patient denies any fever or chills . no Generalized weakness. Abdomen: Patient was complaining of nausea and vomiting and pressure-like something stuck in her throat. no abd. pain Cardiovascular: Patient denies any chest pain or short of breath no palpitations. Respiratory: patient denied any cough . no sputum production. No shortness of breath Neurologic: Patient denied any numbness or tingling headache. Musculoskeletal: Patient denies any complaints of joint swelling or deformity. Skin: Negative Psychiatric: Negative Endocrine: No heat or cold intolerance. No recent weight gain. Genitourinary: No dysuria or hematuria. All other 14 point ROS negative except the above Past Medical History Past Medical History: Osteoarthritis (OA), Skin Disorder Additional Past Medical History / Comment(s): eczema, Hx of fx heels with surgery-arthritis in feet ., states hx of fainting., HIATAL HERNIA. PT STOPPED ALL MEDICATION OVER 30 DAYS AGO History of Any Multi-Drug Resistant Organisms: None Reported Past Surgical History: Orthopedic Surgery, Tonsillectomy Additional Past Surgical History / Comment(s): Bilat heel fx and surg 12/2018, EGD, HITAL HERNIA REPAIR. farhan fundoplication 07/03/22 Past Anesthesia/Blood Transfusion Reactions: No Reported Reaction Past Psychological History: Anxiety, Bipolar, Depression Additional Psychological History / Comment(s): OCPD. PT STOPPED ALL MEDS OVER A MONTH AGO Smoking Status: Never smoker Past Alcohol Use History: Occasional Past Drug Use History: Marijuana Additional Drug Use History / Comment(s): current marijuana use daily. last use 07/01/22 - Past Family History Mother Family Medical History: Cancer Additional Family Medical History / Comment(s): breast cancer Medications and Allergies Home Medications Medication Instructions Recorded Confirmed Type Acetaminophen Tab [Tylenol Tab] 650 mg PO Q4H PRN #30 tablet 07/04/22 07/05/22 Rx oxyCODONE HCL [OxyIR] 5 mg PO Q6H PRN 3 Days #12 tab 07/04/22 07/05/22 Rx Allergies Allergy/AdvReac Type Severity Reaction Status Date / Time cat dander Allergy Intermediate Itching Verified 07/05/22 19:11 dog dander Allergy Intermediate Itching Verified 07/05/22 19:11 Physical Exam Vitals: Vital Signs Temp Pulse Resp BP Pulse Ox 07/07/22 13:12 99.5 F 92 14 124/67 99 07/07/22 07:00 98.1 F 63 18 107/68 100 07/07/22 03:04 98.3 F 85 16 105/67 100 07/06/22 19:10 98.6 F 92 17 106/68 100 07/06/22 14:40 98 F 86 18 111/63 98 Intake and Output 07/06/22 07/07/22 07/07/22 22:59 06:59 14:59 Intake Total 0 Balance 0 Intake: Oral 0 Other: # Voids 3 1 2 PHYSICAL EXAMINATION: Patient is lying in the bed comfortably, no acute distress, awake alert and oriented.. HEENT: Normocephalic. Neck is supple. Pupils reactive. Nostrils clear. Oral cavity is moist. Neck reveals no JVD, carotid bruits, or thyromegaly. CHEST EXAMINATION: Trachea is central. Symmetrical expansion. Lung rios clear to auscultation and percussion. CARDIAC: Normal S1, S2 with no gallops. No murmurs ABDOMEN: Soft. Bowel sounds present. Nontender. No organomegaly. No abdominal bruits. Extremities: reveal no edema. No clubbing or cyanosis Neurologically awake, alert, oriented x3 with well-coordinated movements. No focal deficits noted Skin: No rash or skin lesions. Psychiatric: Coperative. Nonsuicidal,Anxious and emotional. Musculoskeletal: No joint swelling or deformity. Normal range of motion. Results CBC & Chem 7: 07/06/22 06:48 07/06/22 06:48 Assessment and Plan Assessment: Nausea and vomiting likely due to postoperative swelling and pain fundoplication site. Anxiety/depression bipolar disorder Osteoarthritis Eczema Hiatal hernia status post Hamilton fundoplication on 07/03/2022 Daily marijuana use DVT prophylaxis Plan: Patient will be continued symptomatic management for nausea. Was started on dexamethasone 4 mg every 6 hourly with improvement in symptoms today. Pain management. She was started on the clear liquid diet. Continue to follow electrolytes and further recommendations based on the clinical course. Follow-up closely. Time with Patient: Greater than 30
[2022-07-08] MEDS: DEXAMETHASONE SOD PHOSPHATE 4 MG/ML 1 ML VIAL IVP SCH ×2 (05:23→14:12)
[2022-07-08] MEDS: HYDROcodone/APAP 5-325MG 1 EACH TAB PO PRN (08:43)
[2022-07-08] MEDS: HEPARIN SODIUM,PORCINE/PF 5,000 UNIT/0.5 ML SYRINGE SQ SCH (08:44)
[2022-07-08 09:00] VITALS: RESP 14
[2022-07-08 09:01] LABS: African American GFR (CKD) 139.6 (60.0-200.0); Anion Gap 10.3 mmol/L (10.00-18.00); BUN/Creat Ratio 18.14 Ratio (12.00-20.00); Blood Urea Nitrogen 12.7 mg/dL (9.0-27.0); Calcium 9.9 mg/dL (8.7-10.3); Carbon Dioxide 26.7 mmol/L (20.0-27.5); Non-African American GFR(CKD) 120.4 (60.0-200.0); Potassium 4.9 mmol/L (3.5-5.5)
[2022-07-08 12:48] VITALS: BP 118/65; PULSE 89; TEMP 98.3
--- NOTE | 2022-07-08 13:54 | P.PN ---
Subjective Progress Note Date: 07/08/22 Patient is a 26-year-old female with known history of eczema, arthritis, anxiety/depression bipolar disorder and status post Hamilton fundoplication on 07/03/2022 and daily marijuana use presented to ER with complaints of nausea and vomiting unable to take oral diet since last night. Patient is having contin uous nonbilious vomiting. Feels like something stuck in her throat. She was tolerating oral intake at the time of discharge. Otherwise denies any complaints of chest pain or shortness of breath. No fever no chills. No cough or sputum production. No leg swelling. No dizziness or lightheadedness. Patient was started on dexamethasone 4 mg IV push every 6 hourly. Did improve symptomatically overnight. Laboratory pressure WBC 7.1 hemoglobin 12.9 platelets 260 Sodium 136 potassium 4.8 chloride 102 bicarb is 21 BUN 10 and creatinine 0.56 07/08/2022 Patient is evaluated today resting in bed. Reports improvement in abdominal pain, nausea and vomiting. Tolerating clear liquid diet. Reports feelings of hopelessness and states she cannot return home to her sisters house. She is evaluated by psychiatry and discharging on remeron. Sodium 138, potassium 4.9, BUN 12.7, creatinine 0.7. Review of Systems Constitutional: Denied any fatigue denied any fever. Cardio vascular: denied any chest pain, palpitations Gastrointestinal: denied any nausea, vomiting, diarrhea Pulmonary: Denied any shortness of breath cough Neurologic denied any new focal deficits All inpatient medications were reviewed and appropriate changes in these medications as dictated in the interval history and assessment and plan. PHYSICAL EXAMINATION: Patient is lying in the bed comfortably, no acute distress, awake alert and oriented.. HEENT: Normocephalic. Neck is supple. Pupils reactive. Nostrils clear. Oral ca vity is moist. Neck reveals no JVD, carotid bruits, or thyromegaly. CHEST EXAMINATION: Trachea is central. Symmetrical expansion. Lung rios clear to auscultation and percussion. CARDIAC: Normal S1, S2 with no gallops. No murmurs ABDOMEN: Soft. Bowel sounds present. Nontender. No organomegaly. No abdominal bruits. Extremities: reveal no edema. No clubbing or cyanosis Neurologically awake, alert, oriented x3 with well-coordinated movements. No focal deficits noted Skin: No rash or skin lesions. Psychiatric: Coperative. Nonsuicidal,Anxious and emotional. Musculoskeletal: No joint swelling or deformity. Normal range of motion. Assessment and Plan Assessment Nausea and vomiting likely due to postoperative swelling and pain fundoplication site, improved Anxiety/depression bipolar disorder Osteoarthritis Eczema Hiatal hernia status post Hamilton fundoplication on 07/03/2022 Daily marijuana use, counseled on cessation DVT prophylaxis Full Code Plan: Patient will be continued symptomatic management for nausea. Was started on dexamethasone 4 mg every 6 hourly with improvement in symptoms. Tolerating clear liquid diet as recommended by surgical services. Advancing diet recommendations per primary. Pain management. Psychiatry consultation and patient has been started on remeron. Follow up with [facility] outpatient. Follow up with primary care in 1 to 2 days outpatient. Patient is cleared medically for discharge home when cleared by primary The impression and plan of care has been dictated by Iram Romano Nurse Practitioner as directed. Dr. Milagros MD I have performed a history and physical examination and medical decision making of this patient, discussed the same with the dictator, and agree with the dictators assessment and plan as written, documented as a scribe. Based on total visit time, I have performed more than 50% of this visit. Objective - Vital Signs Vital signs: Vital Signs Temp 97.6 F 07/08/22 07:00 Pulse 68 07/08/22 07:00 Resp 14 07/08/22 07:00 BP 108/68 07/08/22 07:00 Pulse Ox 97 07/08/22 07:00 FiO2 Intake & Output 07/07/22 07/08/22 07/08/22 18:59 06:59 18:59 Intake Total 90 250 118 Balance 90 250 118 Intake: Oral 90 250 118 Other: Voiding Method Toilet # Voids 2 1 - Labs CBC & Chem 7: 07/06/22 06:48 07/08/22 04:24 Labs: Abnormal Lab Results - Last 24 Hours (Table) 07/08/22 Range/Units 04:24 Glucose 122 H (70-110) mg/dL Assessment and Plan Time with Patient: Less than 30
--- NOTE | 2022-07-08 13:56 | P.CN ---
Psychiatric Consult - . Consult date: 07/08/22 Consult:: 07/08/22 13:55 IDENTIFYING DATA: This patient is a single, employed, 27-year-old female with a significant history of depression s/p Hamilton fundiplcation on 07/03/2022. HISTORY OF PRESENT ILLNESS: The patient presented to the hospital on 07/05/2022 endorsing a retractable nausea and vomiting. Patient is status post recent fundoplication on 07/03/2022. Psychiatry has been consulted for evaluation of depression and intractable nausea and vomiting. Upon assessment on the medical floor, the patient reports that she's been feeling increasingly stressed out over the past few months. She reports that norma cherry has been homeless in March and was staying with her sister in the interim. She reports that her boyfriend recently cheated on her and that her dog lost his eye. She also states that she feels like she has little support. She does endorse suicidal ideation over the past few days however is denying any intention or plan. She vehemently states that she has no desire to harm herself and does not wish to come to the inpatient psychiatric unit. She reports that she has an appointment with her outpatient web content writer at [facility] tomorrow. Furthermore, the patient is future and goal oriented stating that she would like to return to work and finish her schoolwork. The patient does endorse significant symptoms of depression including anhedonia, feelings of hopelessness, helplessness, and erratic appetite and sleep. She denies any significant history of padmini and denies any increased goal-directed activity, periods of excessive energy, or grandiosity. She denies any auditory or visual hallucinations. She denies any paranoia or other delusions. PAST PSYCHIATRIC HISTORY: Patient has a history of anxiety, depression, and bipolar disorder. She recalls being previously prescribed Lexapro, BuSpar, Abilify, and prazosin however states that she has not taken his medications over the past few months. She reports one prior inpatient psychiatric hospitalization in 2019 after overdosing. She was admitted onto 3 [address]. She is currently open with [facility] and state she has an appointment tomorrow. She reports one prior attempt at suicide in 2019 by overdose. PAST MEDICAL HISTORY: Past Medical History: Osteoarthritis (OA), Skin Disorder Additional Past Medical History / Comment(s): eczema, Hx of fx heels with surgery-arthritis in feet ., states hx of fainting., HIATAL HERNIA. PT STOPPED ALL MEDICATION OVER 30 DAYS AGO History of Any Multi-Drug Resistant Organisms: None Reported Past Surgical History: Orthopedic Surgery, Tonsillectomy Additional Past Surgical History / Comment(s): Bilat heel fx and surg 12/2018, EGD, HITAL HERNIA REPAIR. farhan fundoplication 07/03/22 Past Anesthesia/Blood Transfusion Reactions: No Reported Reaction Past Psychological History: Anxiety, Bipolar, Depression Additional Psychological History / Comment(s): OCPD. PT STOPPED ALL MEDS OVER A MONTH AGO Smoking Status: Never smoker Past Alcohol Use History: Occasional Past Drug Use History: Marijuana Additional Drug Use History / Comment(s): current marijuana use daily. last use 07/01/22 ALLERGIES: Cats and dog dander CHEMICAL DEPENDENCY HISTORY: Patient denies any tobacco use. She reports occasional alcohol use. She reports marijuana use. She denies any illicit drug use. FAMILY PSYCHIATRIC/SUBSTANCE USE HISTORY: The patient reports that her mother has anxiety, depression, and bipolar disorder. She reports her father abused alcohol and cocaine. SOCIAL HISTORY: Patient was born and raised in [place], [place]. 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 She graduated high school. 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 Who work and schooling takes place in [place]. She is single, never , and has no children. She reports that she is currently homeless. MENTAL STATUS EXAM: General Appearance: Patient appears to be stated age is alert, pleasant, and cooperative. Patient appears to have fair hygiene and grooming wearing hospital gown with fair eye contact. Behavior: Patient is calmly lying in bed without any agitated behavior. Speech: Patient's speech is fluent and nonpressured. Mood/Affect: Patient reports their mood is "feeling stressed out", affect is euthymic with appropriate range Suicidality/Homicidality: Patient denies having any suicidal or homicidal ideation intent or plan. Perceptions: Patient denies any visual hallucinations and denies any auditory hallucinations Though content/process: There is no evidence of any delusional thought content and thought process is linear and goal-directed. Memory and concentration: AOX3, grossly intact for the purposes of this session. Can spell "WORLD" backwards Judgment and insight: Fair IMPRESSIONS: Major depressive disorder Nausea and vomiting, resolved PLAN: -At this time patient DOES NOT meet criteria for inpatient psychiatric admis kavita. Although the patient does endorse suicidal ideation she is vehemently denying any intention or plan. She is able to safety plan appropriately and acknowledges that she would utilize crisis numbers or come back to the hospital if necessary. She reports no access to firearms or other weapons. She is scheduled for outpatient psychiatric follow-up tomorrow. -Would recommend the following medication changes/additions: We will start Remeron 15 mg by mouth at bedtime for 7 days for management of depression and nausea. The medication is very reevaluated in the outpatient setting through [facility]. -Recommend outpatient psychiatric follow-up with [facility]. -Psychiatry will sign off at this point, please contact with any questions. Vital Signs Temp 98.3 F 07/08/22 12:48 Pulse 89 07/08/22 12:48 Resp 14 07/08/22 12:48 BP 118/65 07/08/22 12:48 Pulse Ox 99 07/08/22 12:48 FiO2 Intake & Output 07/07/22 07/08/22 07/08/22 18:59 06:59 18:59 Intake Total 90 250 118 Balance 90 250 118 Intake: Oral 90 250 118 Other: Voiding Method Toilet # Voids 2 1 Laboratory Results WBC 7.1 k/uL (3.8-10.6) 07/06/22 06:48 RBC 4.45 m/uL (3.80-5.40) 07/06/22 06:48 Hgb 12.9 gm/dL (11.4-16.0) 07/06/22 06:48 Hct 38.1 % (34.0-46.0) 07/06/22 06:48 MCV 85.6 fL (80.0-100.0) 07/06/22 06:48 MCH 29.0 pg (25.0-35.0) 07/06/22 06:48 MCHC 33.9 g/dL (31.0-37.0) 07/06/22 06:48 RDW 11.9 % (11.5-15.5) 07/06/22 06:48 Plt Count 260 k/uL (150-450) 07/06/22 06:48 MPV 7.7 07/06/22 06:48 Neutrophils % 89 % 07/06/22 06:48 Lymphocytes % 8 % 07/06/22 06:48 Monocytes % 2 % 07/06/22 06:48 Eosinophils % 0 % 07/06/22 06:48 Basophils % 0 % 07/06/22 06:48 Neutrophils # 6.3 k/uL (1.3-7.7) 07/06/22 06:48 Lymphocytes # 0.6 k/uL (1.0-4.8) L 07/06/22 06:48 Monocytes # 0.1 k/uL (0-1.0) 07/06/22 06:48 Eosinophils # 0.0 k/uL (0-0.7) 07/06/22 06:48 Basophils # 0.0 k/uL (0-0.2) 07/06/22 06:48 Sodium 138 mmol/L (135-145) 07/08/22 04:24 Potassium 4.9 mmol/L (3.5-5.5) 07/08/22 04:24 Chloride 101 mmol/L (96-109) 07/08/22 04:24 Carbon Dioxide 26.7 mmol/L (20.0-27.5) 07/08/22 04:24 Anion Gap 10.30 mmol/L (10.00-18.00) 07/08/22 04:24 BUN 12.7 mg/dL (9.0-27.0) 07/08/22 04:24 Creatinine 0.7 mg/dL (0.6-1.5) 07/08/22 04:24 Est GFR (CKD-EPI)AfAm 139.6 (60.0-200.0) 07/08/22 04:24 Est GFR (CKD-EPI)NonAf 120.4 (60.0-200.0) 07/08/22 04:24 BUN/Creatinine Ratio 18.14 Ratio (12.00-20.00) 07/08/22 04:24 Glucose 122 mg/dL (70-110) H 07/08/22 04:24 Plasma Lactic Acid Mike 1.3 mmol/L (0.7-2.0) 07/05/22 19:34 Calcium 9.9 mg/dL (8.7-10.3) 07/08/22 04:24 Total Bilirubin 0.5 mg/dL (0.2-1.3) 07/05/22 17:01 AST 25 U/L (14-36) 07/05/22 17:01 ALT 19 U/L (4-34) 07/05/22 17:01 Alkaline Phosphatase 91 U/L (38-126) 07/05/22 17:01 Total Protein 7.6 g/dL (6.3-8.2) 07/05/22 17:01 Albumin 4.8 g/dL (3.5-5.0) 07/05/22 17:01 Amylase 65 U/L (30-110) 07/05/22 17:01 Lipase 136 U/L (23-300) 07/05/22 17:01 Urine Color Yellow 07/05/22 17:17 Urine Appearance Clear (Clear) 07/05/22 17:17 Urine pH 7.0 (5.0-8.0) 07/05/22 17:17 Ur Specific [place] 1.020 (1.001-1.035) 07/05/22 17:17 Urine Protein Negative (Negative) 07/05/22 17:17 Urine Glucose (UA) Negative (Negative) 07/05/22 17:17 Urine Ketones 3+ (Negative) H 07/05/22 17:17 Urine Blood Negative (Negative) 07/05/22 17:17 Urine Nitrite Negative (Negative) 07/05/22 17:17 Urine Bilirubin Negative (Negative) 07/05/22 17:17 Urine Urobilinogen <2.0 mg/dL (<2.0) 07/05/22 17:17 Ur Leukocyte Esterase Negative (Negative) 07/05/22 17:17 Urine HCG, Qual Not Detected (Not Detectd) 07/05/22 17:17 Allergies Allergy/AdvReac Type Severity Reaction Status Date / Time cat dander Allergy Intermediate Itching Verified 07/05/22 19:11 dog dander Allergy Intermediate Itching Verified 07/05/22 19:11 07/08/22 13:55
--- NOTE | 2022-07-08 14:06 | P.DS ---
Providers Date of admission: 07/05/22 20:55 Expected date of discharge: 07/08/22 Attending physician: Ramone Baron Consults: 07/06/22 11:26 Consult Physician Routine Consulting Provider: Gail Singh Consult Reason/Comments: Medical management Do you want consulting provider notified?: Yes 07/08/22 01:00 Consult Physician Routine Consulting Provider: Psychiatry - [facility] Psych[facility]ry Consult Reason/Comments: Depression Do you want consulting provider notified?: Yes, Notify in am Primary care physician: Cholo Crenshaw MD Hospital Course: Discharge diagnosis 1. Abdominal pain with nausea 2. Recent Hamilton fundoplication and possible postoperative swelling at fundoplication site 3. Depression and suicidal ideation. Patient seen and evaluated by psychiatry and cleared for discharge with outpatient follow-up 4. Dehydration Hospital course This is a 27-year-old female who presented to the hospital with abdominal pain and nausea after Hamilton fundoplication There is concerns of postoperative swelling at the fundoplication site. Patient started on IV Decadron and IV fluids. Patient reports improvement in her abdominal pain. She is no longer having the nausea. She is tolerating diet. Patient is up and ambulating. She's having flatus. Afebrile. She is stable for discharge. Please refer to chart for any further details. Physician Order Entry Administrator note has been reviewed by physician. Signing provider agrees with the documented findings, assessment, and plan of care. Patient Condition at Discharge: Stable Plan - Discharge Summary New Discharge Prescriptions: New Mirtazapine [Remeron] 15 mg PO HS 7 Days #7 tab Continue Acetaminophen Tab [Tylenol] 650 mg PO Q4H PRN #30 tablet PRN Reason: Pain oxyCODONE HCL [OxyIR] 5 mg PO Q6H PRN 3 Days #12 tab PRN Reason: Pain Discharge Medication List Acetaminophen Tab [Tylenol] 650 mg PO Q4H PRN #30 tablet 07/04/22 [Rx] oxyCODONE HCL [OxyIR] 5 mg PO Q6H PRN 3 Days #12 tab 07/04/22 [Rx] Mirtazapine [Remeron] 15 mg PO HS 7 Days #7 tab 07/08/22 [Rx] Follow up Appointment(s)/Referral(s): Cholo Crenshaw MD [Primary Care Provider] - 1-2 days Ramone Baron MD [STAFF PHYSICIAN] - 1 Week Activity/Diet/Wound Care/Special Instructions: Continue full liquid/soft diet No straws or carbonated beverages Patient follow-up with psychiatry tomorrow at scheduled appointment Discharge Disposition: HOME SELF-CARE
[2022-07-08] MEDS ORDERED: MIRTAZAPINE 15 MG TAB PO SCH (21:00)
== END 2022-07-08 14:46 | disposition home or self-care (01) ==
LOC: EC 16:05 → 6NMEDSUR 20:55
PROVIDERS: ADMIT Surgery; ATTEND Surgery
DX: R10.9 Unspecified abdominal pain (principal); K91.0 Vomiting following gastrointestinal surgery; E86.0 Dehydration; D72.829 Elevated white blood cell count, unspecified; F32.9 Major depressive disorder, single episode, unspecified; F31.9 Bipolar disorder, unspecified; F41.9 Anxiety disorder, unspecified; L30.9 Dermatitis, unspecified; F12.90 Cannabis use, unspecified, uncomplicated; Z79.899 Other long term (current) drug therapy; Z80.3 Family history of malignant neoplasm of breast; Z32.02 Encounter for pregnancy test, result negative; Z81.1 Family history of alcohol abuse and dependence; Z81.3 Family history of other psychoactive substance abuse and dependence; Z59.00 Homelessness unspecified; Y83.8 Other surgical procedures as the cause of abnormal reaction of the patient, or of later complication, without mention of misadventure at the time of the procedure
CPT/HCPCS: 96376 ×3; 96361 ×3; 96372 ×4; 96374; 96375; 99285; 36415; 80053; 80048 ×2; 82150; 83605; 83690; 85025 ×2; 81003; 81025; 74018; 74177; G0378 ×4; J2270 ×3; J1100 ×4; J2405 ×2; Q9967; J1644 ×4